=== PATIENT | female | born 1940 | race Caucasian/White ===

== ENCOUNTER 2019-02-05 08:02 | Inpatient (IN) | payer MEDICARE, SELFPAY | END 2019-02-06 14:35 | disposition home health service (06) | DRG 483 | LOC: MEDSURG 02-06 09:37 | PROVIDERS: Admitting Provider Orthopaedic Surgery; Family Provider Nurse Practitioner Family; PCP Nurse Practitioner Family; Referring Provider Nurse Practitioner Family; Visit Provider Orthopaedic Surgery | DX: M19.011 Primary osteoarthritis, right shoulder (principal); M75.121 Complete rotator cuff tear or rupture of right shoulder, not specified as traumatic; R33.9 Retention of urine, unspecified; Z79.82 Long term (current) use of aspirin; I11.0 Hypertensive heart disease with heart failure; I50.9 Heart failure, unspecified; Z87.891 Personal history of nicotine dependence ==

== ENCOUNTER → 2019-03-09 13:13 | Outpatient (BNVA) | payer MEDICARE, SELFPAY | PROVIDERS: Family Provider Nurse Practitioner Family; PCP Nurse Practitioner Family; Visit Provider Nurse Practitioner Family | DX: I10 Essential (primary) hypertension (principal); Z76.0 Encounter for issue of repeat prescription | CPT/HCPCS: 80053; 80061; 85025 ==

== ENCOUNTER → 2019-04-02 15:53 | Outpatient (BNVA) | payer MEDICARE, SELFPAY | PROVIDERS: Visit Provider Orthopaedic Surgery | DX: M25.511 Pain in right shoulder (principal); Z96.611 Presence of right artificial shoulder joint | CPT/HCPCS: 73030 ==

== ENCOUNTER 2019-05-16 08:28 | Outpatient (CLI) | payer MEDICARE, SELFPAY ==
--- NOTE | 2019-05-16 08:45 | USCV_ITS ---
Kenya Beckford Age: 79 Gender: F : 1940 Exam Date: 05/16/2019 08:53 Ordering Phys: Devan Taylor MD (Andy) ([email or web address]) Technologist: Shilpi Ba [place] [facility] [place]: ARTERIOSCLEROSIS OF CAROTID ARTERY Risk Factors: Previous Vascular Surgery: L CEA Right Brachial BP: / Left Brachial BP: / Right Left Velocity (cm/s) Spectral Plaque Velocity (cm/s) Spectral Plaque Syst/Diast Broadening Syst/Diast Broadening 78.60/ 12.00 Prox CCA 70.70 / 10.90 55.90/ 16.30 Mid CCA 69.00 / 15.80 55.90/ 13.20 Distal CCA 69.10 / 18.60 83.70/ 27.30 Prox ICA 73.50 / 22.20 95.70/ 26.50 Mid ICA 92.30 / 29.90 80.40/ 21.90 Distal ICA 72.60 / 25.60 87.80 ECA 144.60 1.71 ICA/CCA 1.34 Antegrade Vertebral Antegrade 51.30/ 10.50 cm/s 58.10/ 16.20 cm/s Tri Subclavian Bi 103.5 121.3 0 0 FINDINGS Comparison:. 11/02/18. Diffuse bilateral scattered calcified plaque and intimal thickening throughout the common carotid arteries and extending through the bifurcation. No significant elevation of systolic or diastolic velocities. Bilateral antegrade vertebral arteries. CONCLUSIONS Bilateral ICA stenosis less than 50%. Mild diffuse atherosclerosis with no change since 11/02/18. Dr. Lyubov Spring DO (Electronically Signed) Final Date: 16 May 2019 10:18 S
== END 2019-05-16 08:29 | disposition home or self-care (01) ==
PROVIDERS: Visit Provider Thoracic Surgery (Cardiothoracic Vascular Surgery)
DX: I65.23 Occlusion and stenosis of bilateral carotid arteries (principal)
CPT/HCPCS: 93880

== ENCOUNTER → 2019-10-01 16:35 | Outpatient (BNVA) | payer MEDICARE, SELFPAY | PROVIDERS: PCP Nurse Practitioner Family; Visit Provider Nurse Practitioner Family | DX: I12.9 Hypertensive chronic kidney disease with stage 1 through stage 4 chronic kidney disease, or unspecified chronic kidney disease (principal); N18.9 Chronic kidney disease, unspecified; E87.1 Hypo-osmolality and hyponatremia; Z68.24 Body mass index [BMI] 24.0-24.9, adult; F17.211 Nicotine dependence, cigarettes, in remission | CPT/HCPCS: 80053; 80061; 84443; 85025 ==

== ENCOUNTER → 2020-04-21 11:53 | Outpatient (BNVA) | payer MEDICARE, SELFPAY | PROVIDERS: PCP Nurse Practitioner Family; Visit Provider Nurse Practitioner Family | DX: I10 Essential (primary) hypertension (principal); N18.9 Chronic kidney disease, unspecified; Z68.24 Body mass index [BMI] 24.0-24.9, adult; F17.211 Nicotine dependence, cigarettes, in remission | CPT/HCPCS: 80053; 80061; 84443; 85025 ==

== ENCOUNTER → 2020-07-09 11:02 | Outpatient (BNVA) | payer MEDICARE, SELFPAY | PROVIDERS: PCP Nurse Practitioner Family; Visit Provider Nurse Practitioner Family | DX: M25.511 Pain in right shoulder (principal); Z96.611 Presence of right artificial shoulder joint | CPT/HCPCS: 73030 ==

== ENCOUNTER → 2020-10-15 10:14 | Outpatient (BNVA) | payer MEDICARE, SELFPAY | PROVIDERS: PCP Family Medicine; Visit Provider Family Medicine | DX: E78.5 Hyperlipidemia, unspecified (principal); I10 Essential (primary) hypertension | CPT/HCPCS: 80053; 80061; 84443; 85025 ==

== ENCOUNTER → 2021-04-23 16:06 | Outpatient (BNVA) | payer MEDICARE, SELFPAY | PROVIDERS: PCP Family Medicine; Visit Provider Family Medicine | DX: M25.512 Pain in left shoulder (principal); E78.5 Hyperlipidemia, unspecified; I10 Essential (primary) hypertension | CPT/HCPCS: 73030; 80053; 80061; 84443; 85025 ==

== ENCOUNTER 2021-05-03 20:56 | Inpatient (IN) | payer MEDICARE, SELFPAY ==
[2021-05-03 21:02] VITALS: BP 176/112; PULSE 75; RESP 16; TEMP 36.9; O2SAT 96; BMI 23.3
--- NOTE | 2021-05-03 21:09 | XR_ITS ---
WS: [id number] Exam: XR hip LT 2-3V wo/w pel* [id number] Date/Time of Exam: 05/03/2021 9:09 PM There is an impacted subcapital fracture of the left hip without significant displacement or angulati on. Moderate DJD of the joint compartment. Osteopenia. XR/XR hip LT 2-3V wo/w pel* [id number] IMPRESSION: 1. Impacted subcapital fracture of the left hip without significant angulation or displacement. 2. Moderate degenerative change.
--- NOTE | 2021-05-03 21:09 | XR_ITS ---
WS: [email or web address] Exam: XR chest 1V portable [id number] Date/Time of Exam: 05/03/2021 9:09 PM Reason For Exam: fall Comparison 12/21/2017. The lungs are hyperinflated and clear. No pleural effusions. Heart size is normal. The mediastinum is normal in contour. Signs of median sternotomy. Reverse right shoulder prosthesis in place. Regional bony structures are intact. XR/XR chest 1V portable [id number] IMPRESSION: 1. Pulmonary hyperinflation which may indicate COPD. No acute cardiopulmonary p rocess noted.
--- NOTE | 2021-05-03 21:21 | W.ED.FALL ---
HPI - Fall General: Chief Complaint: Fall Stated Complaint: FALL Time Seen by Provider: 05/03/21 21:00 History of Present Illness: 81-year-old female with mechanical fall at home, injuring her left hip. She was able to crawl to her in table, and stand up, but could not walk at home. This was around noon today. Pain increasingly got worse with any sort of movement. She presents by EMS. MD complaint: fall Onset (ago): hour(s) Fall from: standing Fall witnessed: no Place fall occurred: home Loss of consciousness: None Prolonged down time: no Symptoms prior to fall: none Context: tripped/slipped Location of injury - extremities: Left: thigh Quality: sharp, stabbing and aching Associated symptoms-after fall: Reports difficulty walking; Denies abdominal pain, chest pain, confusion, headache(s), neck pain, short of breath, vertigo or weakness Review of Systems Const: Denies: fever(s) Eyes: Denies: change in vision ENMT: Denies: throat pain Card: Denies: chest pain Resp: Denies: dyspnea, productive cough or non-productive cough GI: Denies: abdominal pain Musc: Denies: neck pain Neuro: Reports: difficulty walking; Denies: headache(s), vertigo or confusion PFSH ED PFSH: Medical History Aortic stenosis Arrhythmia Arteriosclerosis of left carotid artery Cardiomyopathy CKD (chronic kidney disease) COPD (chronic obstructive pulmonary disease) Dyslipidemia HTN (hypertension) Left ventricular dysfunction Surgical History Aortic valve replaced H/O carotid endarterectomy H/O: hysterectomy History of back surgery Hx of cholecystectomy S/p reverse total shoulder arthroplasty S/P shoulder surgery Family History Denies family history of Diabetes Clotting disorder Dementia Hyperlipidemia Psychiatric illness Chronic kidney disease (CKD) Suicide Anesthesia complication Bleeding disorder Family history of premature coronary artery disease Lung disease Cancer Hypertension Social History Smoking and tobacco status: current every day smoker Alcohol intake: never Lives independently: No Household members: family Marital status: service: No Current occupational status: retired History of recent travel: No Current gender identity: Female Physical Exam Const: GENERAL APPEARANCE: cooperative and frail appearing ORIENTATION/CONSCIOUSNESS: Yes awake, Yes oriented to person, Yes oriented to place and Yes oriented to time HENMT: COMMON NORMALS: normocephalic, atraumatic and external ears normal HEAD & SCALP: normocephalic and atraumatic FACE & SINUS: normal facial exam EXTERNAL EAR: Yes external ears normal Eye: COMMON NORMALS: Equal, round and reactive pupils present and EOMs intact bilaterally PUPIL: Yes Equal, round and reactive pupils present Neck/C-Spine: CERVICAL SPINE: No Cervical spine tenderness Chest: COMMONS NORMALS: normal inspection of the chest and normal palpation of entire chest wall Resp: COMMON NORMALS: normal respiratory effort, No use of accessory muscles and clear to auscultation bilaterally AUSCULTATION: clear to auscultation bilaterally Cardio: COMMON NORMALS: regular rate, regular rhythm and Peripheral pulses 2+ throughout RATE: regular rate RHYTHM: regular rhythm PERIPHERAL PULSES: Peripheral pulses 2+ throughout GI: COMMON NORMALS: Normal to inspection, nondistended, normoactive bowel sounds present, Soft to palpation and non-tender PALPATION: Yes Soft to palpation Extremity: NARRATIVE EXTREMITY EXAM: Exam the left lower extremity reveals tenderness over the anterior left hip and lateral hip. There is pain with any passive range of motion to the left groin. There is shortening of the left lower extremity present. Pulses and sensation are intact Neuro: ESSENCE COMA SCALE: document GCS findings [place] coma scale eye opening: Spontaneous [place] coma scale verbal response: Orientated Essence coma scale motor response: Obey commands [place] coma scale total score: 15 SENSORIUM/ORIENTATION: Yes oriented to person, Yes oriented to place and Yes oriented to time Psych: COMMON NORMALS: mental status grossly normal Course Vital Signs: Vital signs: Vital Signs Temperature 98.4 F 05/03/21 21:26 Pulse Rate 67 05/03/21 21:26 Respiratory Rate 16 05/03/21 21:26 Blood Pressure 178/89 05/03/21 21:26 Pulse Oximetry 94 05/03/21 21:26 MDM - Fall Medical Decision Making 81-year-old female who sustained a left subcapital femoral neck fracture. Orthopedics has been consulted from the ER. Hospitalist will see the patient as well. Lab Data : 05/03/21 21:20 05/03/21 21:20 Laboratory Results WBC 12.0 10^3/uL (4.0-10.0) H 05/03/21 21:20 RBC 4.02 10^6/uL (4.1-5.3) L 05/03/21 21:20 Hgb 12.2 g/dL (11.5-15.3) 05/03/21 21:20 Hct 35.6 % (37.0-47.0) L 05/03/21 21:20 MCV 88.6 fl (81-99) 05/03/21 21:20 MCH 30.3 pg (28.0-34.0) 05/03/21 21: MCHC 34.3 g/dL (30.0-36.0) 05/03/21 21: RDW 13.2 % (12.1-15.1) 05/03/21 21:20 Plt Count 238 10^3/cmm (130-400) 05/03/21 21:20 MPV 10.1 fL (7.4-10.4) 05/03/21 21:20 Neut % (Auto) 85.7 % 05/03/21 21:20 Lymph % (Auto) 7.9 % 05/03/21 21:20 [place] % (Auto) 5.3 % 05/03/21 21:20 Eos % (Auto) 0.2 % 05/03/21 21:20 Baso % (Auto) 0.3 % 05/03/21 21:20 Neut # (Auto) 10.26 10^3/uL (1.8-7.7) H 05/03/21 21:20 Lymph # (Auto) 0.9 10^3/uL (0.8-4.8) 05/03/21 21:20 [place] # (Auto) 0.6 10^3/uL (0.2-0.9) 05/03/21 21:20 Eos # (Auto) 0.0 10^3/uL (0.0-0.8) 05/03/21 21:20 Baso # (Auto) 0.0 10^3/uL (0.0-0.1) 05/03/21 21:20 Nucleated RBC % (auto) 0 % 05/03/21 21:20 Nucleated RBCs # 0.0 /100WBC 05/03/21 21:20 Discharge Plan Discharge Patient Disposition: Admitted As Inpatient Clinical Impression: Closed fracture of left hip Condition: Stable Prescriptions: No Action aspirin 81 mg tablet,delayed release (DR/EC) 81 mg PO ONCE 0RF Multiple Vitamin, Womens Tablet 1 tab PO DAILY 0RF celecoxib [Celebrex] 200 mg capsule 200 mg PO BID Qty: 60 1RF lisinopril-hydrochlorothiazide 20-25 mg tablet See Rx Instructions .ROUTE .COMPLEX Qty: 30 0RF Dose Instruction: TAKE ONE TABLET BY MOUTH DAILY Rx Instructions: TAKE ONE TABLET BY MOUTH DAILY metoprolol succinate 25 mg tablet extended release 24 hr See Rx Instructions .ROUTE .COMPLEX Qty: 30 0RF Dose Instruction: TAKE ONE TABLET BY MOUTH DAILY Rx Instructions: TAKE ONE TABLET BY MOUTH DAILY Referrals: Stephany Rowan MD [Primary Care Provider] - Coding Level of Care Code ED Lead Ingot Molder for David Malloy
[2021-05-03 21:26] VITALS: BP 178/89; PULSE 67; RESP 16; TEMP 36.9; O2SAT 94
[2021-05-03 21:27] LABS: Basophils % 0.3 %; Eosinophils % 0.2 %; Hematocrit 35.6 % (37.0-47.0); Hemoglobin 12.2 g/dL (11.5-15.3); Lymphocytes # 0.9 10^3/uL (0.8-4.8); Lymphocytes % 7.9 %; Mean Corpuscular HGB Conc 34.3 g/dL (30.0-36.0); Mean Corpuscular Hemoglobin 30.3 pg (28.0-34.0); Mean Corpuscular Volume 88.6 fl (81-99); Mean Platelet Volume 10.1 fL (7.4-10.4); Monocytes # 0.6 10^3/uL (0.2-0.9); Monocytes % 5.3 %; Neutrophils # 10.26 10^3/uL (1.8-7.7); Neutrophils % 85.7 %; Nucleated Red Blood Cells % 0 %; Platelet Count 238 10^3/cmm (130-400); Red Blood Count 4.02 10^6/uL (4.1-5.3); Red Cell Distribution Width 13.2 % (12.1-15.1)
[2021-05-03 21:43] LABS: Alanine Aminotransferase 17 U/L (0-33); Albumin Level 4.4 g/dL (3.5-5.2); Alkaline Phosphatase 81 IU/L (35-105); Blood Urea Nitrogen 44 mg/dL (8-23); Calcium 11.1 mg/dL (8.5-10.5); Carbon Dioxide 21 mmol/L (22-29); Chloride 98 mmol/L (98-107); Globulin 3.2 g/dL (1.3-4.6); Glucose 132 mg/dL (65-115); Osmolality Calculated 281 mOsm/kg (285-295); Sodium 129 mmol/L (136-145); Total Bilirubin 0.4 mg/dL (0.15-1.2); Total Protein 7.6 g/dL (6.6-8.7)
[2021-05-03 21:44] LABS: Anion Gap 14.8 (5-19); Aspartate Amino Transferase 29 U/L (0-32); Potassium 4.8 mmol/L (3.5-5.1)
[2021-05-03 21:58] LABS: Add Urine Microscopic? YES; Bilirubin Urine Neg (Negative); Blood Urine Neg (Negative); Glucose Urine UA Norm (Normal); Ketones Urine Negative (Negative); Leukocyte Esterase Urine Trace (Negative); Nitrate Urine Positive (Negative); Protein Urine Neg (Negative); Urine Appearance Clear (CLEAR); Urine Color Yellow (Yellow); Urobilinogen Urine Norm (Negative); pH Urine 5 (5-7)
[2021-05-03 21:59] LABS: Add Urine Culture? Yes; Bacteria Urine 4+ /hpf; Hyaline Casts Urine 0-4 /lpf; RBC Urine 0-4 /hpf (0-2); Squamous Epithelial Cell Urine 0-4 /hpf (0-5); WBC Urine >100 /hpf (0-5)
[2021-05-04] VITALS (28 sets, daily range): BP systolic 98–172; BP diastolic 43–92; PULSE 53–86; RESP 15–18; TEMP 36.2–36.8; O2SAT 90–100; BMI 23.4
--- NOTE | 2021-05-04 00:26 | PM.HP ---
Providers/Chief Complaint Admitting Physician: Navneet Spears MD Primary Care Provider: Stephany Rowan MD Chief Complaint: FALL History of Present Illness Kenya Beckford is a 81 year old female with a past medical history of COPD, history of aortic valve replacement, history of carotid endarterectomy, history of multiple falls, history of right shoulder surgery resultant from a fall, hypertension, dyslipidemia, CKD, who presents [facility] from a fall. Patient tells me that today, that she had a fall, she tells me both her knees just gave out, she was on the floor for about an hour before the EMS came. No significant head trauma, no loss of consciousness, no preceding chest pain, palpitations stroke symptoms seizure symptoms. She was not able to bear weight when she was gone up on her feet, no history of cardiac stenting, is a smoker no history of COPD and history of stroke, is not on any blood thinner, no diabetes, Review of Systems Const: Denies: fever(s) Eyes: Denies: change in vision ENMT: Denies: nasal congestion Resp: Denies: dyspnea or wheezing GI: Denies: abdominal pain, nausea or vomiting : Denies: flank pain Musc: Denies: neck pain or back pain Skin/Breast: Denies: rash Neuro: Denies: headache(s) or dizziness Medications/Allergies Home Medications Medication Instructions Recorded Confirmed Last Taken Type aspirin 81 mg tablet,delayed 81 mg PO ONCE 02/19/19 04/23/21 Unknown History release dypxpnqpjnwp-Tb-tzlp-minerals 1 tab PO DAILY tab 10/01/19 04/23/21 Unknown History (Multiple Vitamin, Womens) lisinopril 20 See Rx Instructions .ROUTE 04/20/21 04/23/21 Unknown Rx mg-hydrochlorothiazide 25 mg tablet .COMPLEX #30 tab metoprolol succinate 25 mg See Rx Instructions .ROUTE 04/20/21 04/23/21 Unknown Rx tablet,extended release 24 hr .COMPLEX #30 tab celecoxib 200 mg capsule (Celebrex) 200 mg PO BID #60 cap 04/23/21 04/23/21 Unknown Rx Allergies Allergy/AdvReac Type Severity Reaction Status Date / Time all antibiotics Allergy rash Uncoded 04/23/21 15:36 all pain medications Allergy rash Uncoded 04/23/21 15:36 PFSH Acute PFSH: Medical History Aortic stenosis Arrhythmia Arteriosclerosis of left carotid artery Cardiomyopathy CKD (chronic kidney disease) COPD (chronic obstructive pulmonary disease) Dyslipidemia HTN (hypertension) Left ventricular dysfunction Surgical History Aortic valve replaced H/O carotid endarterectomy H/O: hysterectomy History of back surgery Hx of cholecystectomy S/p reverse total shoulder arthroplasty S/P shoulder surgery Family History Denies family history of Diabetes Clotting disorder Dementia Hyperlipidemia Psychiatric illness Chronic kidney disease (CKD) Suicide Anesthesia complication Bleeding disorder Family history of premature coronary artery disease Lung disease Cancer Hypertension Social History Smoking and tobacco status: current every day smoker Alcohol intake: never Lives independently: No Household members: family Marital status: service: No Current occupational status: retired History of recent travel: No Current gender identity: Female Vitals/I&O/Wt Last Vital Signs Temp 98.2 F 05/04/21 00:08 Pulse 72 05/04/21 00:08 Resp 16 05/04/21 00:08 BP 172/92 05/04/21 00:08 Pulse Ox 94 05/04/21 00:08 Weight last 48 hrs Weight 61.689 kg Physical Exam Const: COMMON NORMALS: no acute distress and patient oriented x3 HENMT: COMMON NORMALS: normocephalic HEAD & SCALP: normocephalic Neck/C-Spine: COMMON NORMALS: no JVD Resp: COMMON NORMALS: normal respiratory effort, No retractions, No use of accessory muscles and clear to auscultation bilaterally AUSCULTATION: clear to auscultation bilaterally Cardio: COMMON NORMALS: no JVD, regular rate, regular rhythm, S1 normal heart sound present and S2 normal heart sound present RATE: regular rate RHYTHM: regular rhythm HEART SOUNDS: S1 normal heart sound present, S2 normal heart sound present and Murmur heart sound present GI: COMMON NORMALS: Normal to inspection, nondistended, normoactive bowel sounds present, Soft to palpation, non-tender, No hepatosplenomegaly present, no masses and no bruits PALPATION: Yes Soft to palpation and Yes No hepatosplenomegaly present Extremity: COMMON NORMALS: capillary refill normal, no clubbing, cyanosis or edema, no calf tenderness and no pedal edema Neuro: COMMON NORMALS: patient oriented x3 Psych: COMMON NORMALS: mental status grossly normal Urinary Catheter Management: Larose: Cath Placed During This Visit: yes Urinary Catheter Date of Insertion: 05/03/21 Urinary Catheter Time of Insertion: 21:40 Data : 05/03/21 21:20 05/03/21 21:20 A&P Assessment and plan (1) Closed fracture of left hip: Status: Acute Qualifiers: Encounter type: initial encounter Qualified Code(s): S72.002A - Fracture of unspecified part of neck of left femur, initial encounter for closed fracture (2) UTI (urinary tract infection): Status: Acute Plan Left hip fracture -Pain control morphine, Zofran for nausea -N.p.o. -SCDs for DVT prophylaxis, anticoagulation currently on hold for possible surgical intervention in the morning Hyponatremia, possibly secondary to lisinopril hydrochlorothiazide, dehydration, hold blood pressure medications, IV fluids UTI, Rocephin DEVIN on CKD, IV fluids COPD, not in exacerbation Hypertension, hold blood pressure medications History of aortic valve replacement, not on anticoagulation except aspirin Full code Attestations Medical Necessity Statement*: Patient requires hospitalization for hip fracture, UTI, CKD, inpatient, greater than 2 minutes Coding Level of Care Code Acute Tour Production Supervisor for David Malloy Diagnoses Closed fracture of left hip S72.002A Encounter type: initial encounter UTI (urinary tract infection) N39.0
[2021-05-04] MEDS: fentaNYL 50 mcg/mL INJ 2mL IVP (00:27)
[2021-05-04] MEDS: ondansetron 2 mg/ML SDV 2 mL 4 MG IVP (00:27)
[2021-05-04] MEDS: dextrose 5%-sod chloride 0.9% 1,000 ML 75 ML IV ×2 (01:14→12:41)
[2021-05-04] MEDS: pantoprazole 40 mg SDV IVP ×2 (01:14→12:42)
[2021-05-04] MEDS: cefTRIAXone 1,000 MG in sodium chloride 0.9% (plus) 50 ML 100 MG IV (01:14)
[2021-05-04] MEDS: morphine 4 mg/mL SDV 1 mL 2 MG IVP ×2 (01:42→13:06)
[2021-05-04 03:55] LABS: NT Pro B Type Natriuretic Pept 1178 pg/mL (0-450)
--- NOTE | 2021-05-04 06:11 | PM.CONSULT ---
Providers/Reason For Consult Consulting Physician/Specialty*: Orthopedics Reason for Consult*: Left hip pain Attending Physician: Navneet Spears MD Primary Care Provider: Stephany Rowan MD History of Present Illness History of Present Illness Kenya Beckford is a 81 year old female who fell from a standing position at home sustaining injury to her Left hip. She felt immediate pain with inability to stand or move without severe pain been constant sharp stabbing in nature. She presented to [facility] emergency room where x-rays confirmed a left hip fracture. She was admitted for more definitive management orthopedics was consulted. She was evaluated on room 277 with continued left hip pain. She denied any neck or back pain. Denied any loss of consciousness in the fall. Ranks the pain is 7 out of 10 on the pain scale. Movement makes it much worse rest gives her some temporary relief. An extensive review of the patient's past medical history, surgical history, allergies, medications, family history, social history, and review of systems was completed Review of Systems Const: Denies: fever(s) Eyes: Denies: change in vision ENMT: Denies: nasal congestion Resp: Denies: dyspnea or wheezing GI: Denies: abdominal pain, nausea or vomiting : Denies: flank pain Musc: Denies: neck pain or back pain Skin/Breast: Denies: rash Neuro: Denies: headache(s) or dizziness Medications/Allergies Home Medications Medication Instructions Recorded Confirmed Last Taken Type aspirin 81 mg tablet,delayed 81 mg PO DAILY 02/19/19 05/04/21 Unknown History release tvegjevkmyec-Nr-hbec-minerals 1 tab PO DAILY tab 10/01/19 05/04/21 Unknown History (Multiple Vitamin, Womens) lisinopril 20 See Rx Instructions .ROUTE 04/20/21 05/04/21 Unknown Rx mg-hydrochlorothiazide 25 mg tablet .COMPLEX #30 tab metoprolol succinate 25 mg See Rx Instructions .ROUTE 04/20/21 05/04/21 Unknown Rx tablet,extended release 24 hr .COMPLEX #30 tab celecoxib 200 mg capsule (Celebrex) 200 mg PO BID #60 cap 04/23/21 05/04/21 Unknown Rx Allergies Allergy/AdvReac Type Severity Reaction Status Date / Time Anything in cillin family Allergy ALGY-Rash Uncoded 05/04/21 01:36 Aspirin 325mg Allergy ALGY-Rash Uncoded 05/04/21 01:37 Current Medications Generic Name Dose Route Start Last Admin Trade Name Roshanq PRN Reason Stop Dose Admin Ceftriaxone Sodium 1,000 mg/ 50 mls @ 100 mls/hr 05/04/21 00:30 05/04/21 01:14 Sodium Chloride IV 100 mls/hr Q24H MARK Administration Protocol Dextrose/Sodium Chloride 1,000 mls @ 75 mls/hr 05/04/21 00:30 05/04/21 01:14 Dextrose 5%-Sod Chloride 0.9% IV 75 mls/hr .[id number] MARK Administration Morphine Sulfate 2 mg 05/04/21 00:28 05/04/21 01:42 Morphine 4 Mg/Ml Sdv 1 Ml IVP 2 mg Q4H PRN Administration SEVERE PAIN Pantoprazole Sodium 40 mg 05/04/21 00:30 05/04/21 01:14 Pantoprazole 40 Mg Sdv IVP 40 mg Q12H MARK Administration PFSH Acute PFSH: Medical History Aortic stenosis Arrhythmia Arteriosclerosis of left carotid artery Cardiomyopathy CKD (chronic kidney disease) COPD (chronic obstructive pulmonary disease) Dyslipidemia HTN (hypertension) Left ventricular dysfunction Surgical History Aortic valve replaced H/O carotid endarterectomy H/O: hysterectomy History of back surgery Hx of cholecystectomy S/p reverse total shoulder arthroplasty S/P shoulder surgery Family History Denies family history of Diabetes Clotting disorder Dementia Hyperlipidemia Psychiatric illness Chronic kidney disease (CKD) Suicide Anesthesia complication Bleeding disorder Family history of premature coronary artery disease Lung disease Cancer Hypertension Social History Smoking and tobacco status: current every day smoker Alcohol intake: never Lives independently: No Household members: family Marital status: service: No Current occupational status: retired History of recent travel: No Current gender identity: Female Vitals/I&O/Wt Last Vital Signs Temp 97.8 F 05/04/21 04:00 Pulse 60 05/04/21 04:00 Resp 18 05/04/21 04:00 BP 98/60 03/28/22 04:00 Pulse Ox 96 05/04/21 04:00 05/03/21 05/03/21 05/04/21 14:59 22:59 06:59 Output Total 375 / 375 Balance -375 / -375 Weight last 48 hrs Weight 136 lb 8 oz Weight 136 lb Physical Exam Narrative: She is alert and orient x3 she has good general appearance normal normal affect. She is tender with palpation over the left hip she has positive logroll on the left negative on the right. She has normal station light touch down both lower extremities skin is clear warm femoral good cap refill calves are supple no medial thigh tenderness. Wiggles her toes. Dorsalis pedis posterior pulses are palpable. No palpable pain in the lumbar region she has well-healed incision from previous lumbar surgery. No palpable pain in the thoracic or cervical spine moves both upper extremities are warm to touch hands warm good cap refill. HENMT: COMMON NORMALS: normocephalic and atraumatic HEAD & SCALP: normocephalic and atraumatic Resp: COMMON NORMALS: normal respiratory effort Cardio: COMMON NORMALS: regular rate and regular rhythm RATE: regular rate RHYTHM: regular rhythm GI: COMMON NORMALS: Soft to palpation and non-tender PALPATION: Yes Soft to palpation : COMMON NORMALS: Yes no CVA tenderness BLADDER/KIDNEY EXAM: Yes no CVA tenderness Back/Pelvis: COMMON NORMALS: no CVA tenderness Psych: COMMON NORMALS: mental status grossly normal and cooperative Urinary Catheter Management: Larose: Cath Placed During This Visit: yes Urinary Catheter Date of Insertion: 05/03/21 Urinary Catheter Time of Insertion: 21:40 Data : 05/03/21 21:20 05/03/21 21:20 A&P Assessment and plan (1) Left displaced femoral neck fracture: Discussed her injury to the left hip which will need open reduction internal fixation with left hip hemiarthroplasty. Discussed the risks and benefits of the procedure which include but not limited to bleeding, infection, nerve damage, reaction to anesthesia. She understands and wishes to proceed. Discussed with Dr. Grady and he agrees with above-stated plan. Status: Acute (2) Hyponatremia: Status: Acute (3) UTI (urinary tract infection): Status: Acute (4) COPD (chronic obstructive pulmonary disease): Status: Acute Coding Level of Care Code Acute Dock Associate for [facility] Diagnoses Left displaced femoral neck fracture S72.002A Hyponatremia E87.1 UTI (urinary tract infection) N39.0 COPD (chronic obstructive pulmonary disease) J44.9
--- NOTE | 2021-05-04 10:30 | PC.CHAP ---
Pastoral Care Encounter/Spiritual Assessment Type of Contact [] Declined leaflet distributor visit [] Patient/Family/Request visit [] Outpatient visit [] Follow-up visit [] Physician referral [] Code/Alert [x] Routine visit [] Staff referral [] Actively dying [] Patient sleeping [] Family support [] [] Out of room [] Palliative care [] [] Receiving care in room [] Pre-surgical visit [] Trauma [] Long length of stay [] ICU visit [] Other: Relational/Emotional Strength x[] Patient feels connected with others/family/visitors/staff [] Distress [] Loneliness/isolation [] Abandonment Spirituality of Patient x] Person of Tania [x] Attends Hindu of their Tania [x] Believes in Prayer [] Reads Bible or Orthodoxy materials [] There are Spiritual issues to be addressed Microphone Operator Interventions [x] Prayer [x] Active listening [x] Non-anxious presence [] Spiritual/emotional support [] Crisis/trauma care [] Spiritual counseling [] Bereavement support [] Provided bereavement packet [] Provided Bible/devotional materials [] Provided toy/stuffed animal, coloring book to patient or family member [] Provided Communion [] Anointing/[place] [] Salvation [x] Completed spiritual assessment [] Other: Impact on Illness or Injury [] Angry [] Fearful [] Anxious [] Often cries [] Exhaustion [] Unable to work [] Unable to attend uatsdin [] Unable to walk/stand [] Unable to read [] Unable to drive [] Unable to eat/drink [] Unable to sleep [] Unable to be with family [] Patient intubated [] Other: Summary Time spent with patient 10 min
--- NOTE | 2021-05-04 11:34 | P.PN_ITS ---
Subjective Subjective: Patient was seen this morning, she is awaiting surgical intervention by Dr. Butler, she has no complaints, pain is well controlled, she is wheezing on exam, reports a history of COPD, has history of smoking Vitals/I&O/Wt Last Vital Signs Temp 97.2 F L 05/04/21 07:59 Pulse 62 05/04/21 08:52 Resp 18 05/04/21 08:52 BP 98/62 05/04/21 07:59 Pulse Ox 95 05/04/21 09:01 05/03/21 05/04/21 05/04/21 22:59 06:59 14:59 Intake Total 50 / 50 Output Total 375 / 375 Balance -375 / -375 50 / 50 Weight last 48 hrs Weight 61.915 kg Weight 61.689 kg Physical Exam Const: COMMON NORMALS: no acute distress and patient oriented x3 Resp: COMMON NORMALS: normal respiratory effort, No retractions and No use of accessory muscles AUSCULTATION: wheezes Cardio: COMMON NORMALS: regular rate, regular rhythm, S1 normal heart sound present and S2 normal heart sound present RATE: regular rate RHYTHM: regular rhythm HEART SOUNDS: S1 normal heart sound present and S2 normal heart sound present GI: COMMON NORMALS: Normal to inspection, nondistended, normoactive bowel sounds present, Soft to palpation, non-tender, No hepatosplenomegaly present and no masses PALPATION: Yes Soft to palpation and Yes No hepatosplenomegaly present Extremity: COMMON NORMALS: no pedal edema Neuro: COMMON NORMALS: patient oriented x3 Psych: COMMON NORMALS: mental status grossly normal Urinary Catheter Management: Larose: Cath Placed During This Visit: yes Reason for Continuing Indwelling Catheter: Perioperative Use in Selected Surgeries Urinary Catheter Date of Insertion: 05/03/21 Urinary Catheter Time of Insertion: 21:40 Data : 05/03/21 21:20 05/03/21 21:20 A&P Assessment and plan (1) COPD exacerbation: Status: Acute (2) Closed fracture of left hip: Status: Acute Qualifiers: Encounter type: initial encounter Qualified Code(s): S72.002A - Fracture of unspecified part of neck of left femur, initial encounter for closed fracture (3) UTI (urinary tract infection): Status: Acute Plan Left hip fracture -Pain control morphine, Zofran for nausea -N.p.o. -SCDs for DVT prophylaxis, anticoagulation currently on hold for possible surgical intervention in the morning Hyponatremia, possibly secondary to lisinopril hydrochlorothiazide, dehydration, hold blood pressure medications, IV fluids UTI, Rocephin COPD exacerbation: 1 dose of Solu-Medrol 125, started by 40 once daily tomorrow, DuoNeb treatments DEVIN on CKD, IV fluids COPD, not in exacerbation Hypertension, hold blood pressure medications History of aortic valve replacement, not on anticoagulation except aspirin Full code Disposition, will have PT OT work with her, decide if she needs to have home health care versus skilled nursing placement Attestations Medical Necessity Statement*: Patient requires hospitalization for COPD exacerbation, hip fracture, UTI, hyponatremia, inpatient, greater than 2 midnights Coding Level of Care Code Acute Manganese Heater for David Malloy Diagnoses COPD exacerbation J44.1 Closed fracture of left hip S72.002A Encounter type: initial encounter UTI (urinary tract infection) N39.0
--- NOTE | 2021-05-04 14:29 | ANES.PREANE2 ---
Pre-Anesthetic Assessment Height/Weight: Height 1.63 m Weight 61.915 kg Temp Pulse Resp BP Pulse Ox 97.5 F L 67 17 111/65 90 05/04/21 11:59 05/04/21 11:59 05/04/21 11:59 05/04/21 11:59 05/04/21 11:42 Preop Diagnosis: Displaced left femoral neck fracture Operation Date: 05/04/21 18:55 Proposed Procedures p Hemiarthroplasty Hip(Left) - Jamel Butler, DO Familial anesthetic complications: None Was Beta Ariana taken within 24 hours: Yes Was Clonidine taken within 24 hours: N/A Last intake: 05/03/21 Social Tobacco Exam alert, oriented x 3, clear to auscultation bilaterally and regular rate & rhythm Airway Submandibular: within normal limits Cervical ROM: within normal limits Mallampati: Class II Dentition: false History/ROS No significant complaints Pulmonary Chronic Obstructive Pulmonary Disease CV/HEM Arrythmia, Congestive Heart Failure, Hypertension, Murmur and Peripheral Vascular Disease Hx of s/p AVR PVD s/p carotid endaterectomy Elevated BNP EKG pending Chronic Renal Insufficiency Hepatic None reported GI None reported Metabolic None reported Musc/skel Osteoarthritis/DJD Neuropsych None reported No loss of consciousness Anesthetic Plan ASA status: 3 Anesthesia: Anesthesia Evaluation and General Other: We discussed risk and benefits of general vs spinal anesthesia including DVT risk, infection, paralysis/catastrophic nerve injury, back bruising/pain, PDPH, conversion to general in case of spinal, PONV, sore throat (sometimes severe), corneal abrasion, positioning and peripheral nerve injuries, life threatening allergic reaction, post operative ICU admission requiring prolonged intubation, stroke, heart attack, , and rare incidences of recall. Patient prefers general anesthesia Risk of > 500 ml blood loss (7ml/kg in children): No Medications/Allergies Home Medications Medication Instructions Recorded Confirmed Last Taken Type aspirin 81 mg tablet,delayed 81 mg PO DAILY 02/19/19 05/04/21 Unknown History release aiwjitushgdl-Gp-dunk-minerals 1 tab PO DAILY tab 10/01/19 05/04/21 Unknown History (Multiple Vitamin, Womens) lisinopril 20 See Rx Instructions .ROUTE 04/20/21 05/04/21 Unknown Rx mg-hydrochlorothiazide 25 mg tablet .COMPLEX #30 tab metoprolol succinate 25 mg See Rx Instructions .ROUTE 04/20/21 05/04/21 Unknown Rx tablet,extended release 24 hr .COMPLEX #30 tab celecoxib 200 mg capsule (Celebrex) 200 mg PO BID #60 cap 04/23/21 05/04/21 Unknown Rx Allergies Allergy/AdvReac Type Severity Reaction Status Date / Time Anything in cillin family Allergy ALGY-Rash Uncoded 05/04/21 01:36 Aspirin 325mg Allergy ALGY-Rash Uncoded 05/04/21 01:37 Current Medications Generic Name Dose Route Start Last Admin Trade Name Freq PRN Reason Stop Dose Admin Docusate Sodium 100 mg 05/04/21 09:00 05/04/21 07:55 Docusate Sodium 100 Mg Capsule PO Not Given BID MARK Ceftriaxone Sodium 1,000 mg/ 50 mls @ 100 mls/hr 05/04/21 00:30 05/04/21 07:55 Sodium Chloride IV Infused Q24H MARK Infusion Protocol Dextrose/Sodium Chloride 1,000 mls @ 75 mls/hr 05/04/21 00:30 05/04/21 12:41 Dextrose 5%-Sod Chloride 0.9% IV 75 mls/hr .[id number] MARK Administration Morphine Sulfate 2 mg 05/04/21 00:28 05/04/21 13:06 Morphine 4 Mg/Ml Sdv 1 Ml IVP 2 mg Q4H PRN Administration SEVERE PAIN Pantoprazole Sodium 40 mg 05/04/21 00:30 05/04/21 12:42 Pantoprazole 40 Mg Sdv IVP 40 mg Q12H MARK Administration PFSH Anesthesia Medical History Aortic stenosis Arrhythmia Arteriosclerosis of left carotid artery Cardiomyopathy CKD (chronic kidney disease) COPD (chronic obstructive pulmonary disease) Dyslipidemia HTN (hypertension) Left ventricular dysfunction Surgical History Aortic valve replaced H/O carotid endarterectomy H/O: hysterectomy History of back surgery Hx of cholecystectomy S/p reverse total shoulder arthroplasty S/P shoulder surgery Family History Denies family history of Diabetes Clotting disorder Dementia Hyperlipidemia Psychiatric illness Chronic kidney disease (CKD) Suicide Anesthesia complication Bleeding disorder Family history of premature coronary artery disease Lung disease Cancer Hypertension Social History Smoking and tobacco status: current every day smoker Alcohol intake: never Lives independently: No Household members: family Marital status: service: No Current occupational status: retired History of recent travel: No Current gender identity: Female Data Anesthesia : 05/03/21 21:20 05/03/21 21:20 Short CBC 05/03/21 Range/Units 21:20 WBC 12.0 H (4.0-10.0) 10^3/uL Hgb 12.2 (11.5-15.3) g/dL Hct 35.6 L (37.0-47.0) % MCV 88.6 (81-99) fl Plt Count 238 (130-400) 10^3/cmm Neut % (Auto) 85.7 % Neut # (Auto) 10.26 H (1.8-7.7) 10^3/uL BMP 05/03/21 21:20 Sodium 129 L Potassium 4.8 Chloride 98 Carbon Dioxide 21 L BUN 44 H Creatinine 1.5 H Glucose 132 H Calcium 11.1 H Cardiac Enzymes 05/04/21 Range/Units 03:12 NT-Pro-B Natriuret Pep 1178 H (0-450) pg/mL Liver Function 05/03/21 Range/Units 21:20 Total Bilirubin 0.4 (0.15-1.2) mg/dL AST 29 (0-32) U/L ALT 17 (0-33) U/L Alkaline Phosphatase 81 (35-105) IU/L Albumin 4.4 (3.5-5.2) g/dL Urine 05/03/21 Range/Units 21:40 Urine Color Yellow (Yellow) Urine Appearance Clear (CLEAR) Urine pH 5 (5-7) Ur Specific [place] 1.020 (1.005-1.030) Urine Protein Neg (Negative) Urine Glucose (UA) Norm (Normal) Urine Ketones Negative (Negative) Urine Nitrate Positive H (Negative) Urine Bilirubin Neg (Negative) Ur Leukocyte Esterase Trace H (Negative) Urine RBC 0-4 H (0-2) /hpf Urine WBC >100 H (0-5) /hpf Cardiac Studies: No Data to Display
--- NOTE | 2021-05-04 14:45 | ECG_ITS ---
[facility] Test Date: 2021-05-04 Pat Name: Kenya Beckford Department: Room: 277 Gender: Female Backrest Assembler: : 1940 Requested By: Connie Foy Order Number: [id number] Brittany MD: Ramon Le M.D. Measurements Intervals [place] Rate: 62 P: 20 OK: 205 QRS: -6 QRSD: 135 T: 40 QT: 423 QTc: 431 Interpretive Statements SINUS RHYTHM LEFT BUNDLE BRANCH BLOCK [120+ ms QRS DURATION, 80+ ms Q/S IN V1/V2, 85+ ms R IN I/aVL/V5/V6] Compared to ECG 01/26/2019 12:00:13 Sinus arrhythmia no longer present Electronically Signed On 05-04-2021 22:02:03 CDT by Ramon Le M.D. [email or web address]
[2021-05-04] MEDS: sodium chloride 0.9% 1,000 ML 30 ML IV (15:04)
--- NOTE | 2021-05-04 15:07 | PC.NURSE ---
Clindamycin dose confirmed with physician. Order received to use 900mg for surgery
[2021-05-04] MEDS: clindamycin 900 MG/50 ML PREMIX 100 MG IV (15:59)
--- NOTE | 2021-05-04 16:51 | PM.OP ---
Operative Report Date of procedure: May 04, 2021 Pre-op diagnosis: Preop Diagnosis Displaced left femoral neck fracture Post-op diagnosis: same Procedure done: left hip hemiarthroplasty Surgeon: Jamel Butler Scientific Artist: Moses Skaggs Scientific Artist: The talent acquisition assistant, Moses Skaggs, HECTOR was needed for his expertise with fracture care. He was important and necessary throughout the procedure to complete in a safe and timely manner. He assisted with patient positioning prepping and draping tissue retraction suctioning of the operative field protection of the critical structures and tissue closure Estimated blood loss (mL): 50 Procedure: Patient was brought to the operative suite after undergoing incision was positioned in the lateral cubitus position with the left side up. Patient was then prepped and draped normal sterile fashion. Skin tear is made over the lateral aspect of the hip. IT band was split modified Gonzalez approach was used abductors and capsule were taken anteriorly. Femoral neck made with a saw. Next tension was brought to preparing the femoral canal after the acetabular is cleaned out. caramel cutter machine was used in the greater trochanter. Followed by canal finder followed by broaches the first broach used to lateralize the canal and then 5 broaches were placed 0-5. Size 5 Eckley stem was inserted with a negative for neck length and appropriate size head. The hip was reduced and trialed in all positions. Once the hip was felt to be stable wounds were irrigated and closed in a layered fashion. Fiber is used to close the capsule and abductors. The IT was closed with 0 Vicryl skin was closed 2-0 Vicryl and юлия. Sterile dressings applied and patient is transferred to the PACU in stable condition.
--- NOTE | 2021-05-04 17:50 | ANE.PACU2 ---
Inpatient post-anesthesia follow up: Airway intact: Yes Vital signs: Temperature 97.5 F Pulse Rate 78 Respiratory Rate 17 Blood Pressure 131/61 Pulse Oximetry 100 Oxygen Delivery Me thod Nasal Cannula Oxygen Flow Rate 3 Fraction of Inspir ed Oxygen Hydration adequate: Yes Nausea and vomiting: No Pain level: 1 Mental status: Baseline
[2021-05-04] MEDS: ketorolac 30 mg/mL INJ 15 MG IVP (23:42)
[2021-05-05] VITALS (10 sets, daily range): BP systolic 100–149; BP diastolic 63–70; PULSE 46–123; RESP 16–19; TEMP 36.4–36.9; O2SAT 91–97
[2021-05-05] MEDS: clindamycin 600 MG/50 ML PREMIX 100 MG IV ×3 (00:24→15:17)
[2021-05-05] MEDS: pantoprazole 40 mg SDV IVP ×2 (00:54→11:42)
[2021-05-05] MEDS: cefTRIAXone 1,000 MG in sodium chloride 0.9% (plus) 50 ML 100 MG IV (01:15)
[2021-05-05] MEDS: enoxaparin 40 mg/0.4 mL Syringe SUBCUT (03:54)
[2021-05-05] MEDS: dextrose 5%-sod chloride 0.9% 1,000 ML 75 ML IV (05:06)
[2021-05-05] MEDS: ketorolac 30 mg/mL INJ 15 MG IVP ×4 (05:10→22:16)
[2021-05-05 05:38] LABS: Basophils % 0.1 %; Hemoglobin 9.2 g/dL (11.5-15.3); Lymphocytes # 0.9 10^3/uL (0.8-4.8); Lymphocytes % 9.2 %; Mean Corpuscular HGB Conc 32.9 g/dL (30.0-36.0); Mean Corpuscular Hemoglobin 31.2 pg (28.0-34.0); Mean Corpuscular Volume 94.9 fl (81-99); Mean Platelet Volume 10.4 fL (7.4-10.4); Monocytes # 0.9 10^3/uL (0.2-0.9); Monocytes % 8.5 %; Neutrophils # 8.13 10^3/uL (1.8-7.7); Neutrophils % 81.7 %; Nucleated Red Blood Cells % 0 %; Platelet Count 175 10^3/cmm (130-400); Red Blood Count 2.95 10^6/uL (4.1-5.3); Red Cell Distribution Width 13.6 % (12.1-15.1)
[2021-05-05 06:04] LABS: Anion Gap 13.9 (5-19); Blood Urea Nitrogen 33 mg/dL (8-23); Calcium 9.3 mg/dL (8.5-10.5); Carbon Dioxide 22 mmol/L (22-29); Chloride 102 mmol/L (98-107); Glucose 119 mg/dL (65-115); Magnesium 1.8 mg/dL (1.7-2.3); Osmolality Calculated 284 mOsm/kg (285-295); Potassium 4.9 mmol/L (3.5-5.1); Sodium 133 mmol/L (136-145); Thyroid Stimulating Hormone 0.33 uIU/mL (0.27-4.20)
--- NOTE | 2021-05-05 07:47 | P.PN_ITS ---
Subjective Subjective: POD 1 Patient resting comfortably. Has some mild left hip pain. Denies any chest pain, shortness of breath. Vitals/I&O/Wt Last Vital Signs Temp 98.3 F 05/05/21 07:29 Pulse 54 L 05/05/21 07:29 Resp 17 05/05/21 07:29 BP 100/70 05/05/21 07:29 Pulse Ox 95 05/05/21 07:29 05/04/21 05/05/21 05/05/21 22:59 06:59 14:59 Intake Total 1050 / 1958.75 1340 / 3298.75 Output Total 215 / 215 400 / 615 Balance 835 / 1743.75 940 / 2683.75 Weight last 48 hrs Weight 136 lb 8 oz Weight 136 lb Physical Exam Narrative: Patient is alert and orient x3 has good general appearance normal normal affect. Left hip incision is clean and dry. There is no signs of erythema or drainage no signs of infection. Good motor strength throughout both lower extremities. Fires in all motor groups. Skin is clear warm, feet are warm with good cap refill in all digits. Normal sensation to light touch. Calves are supple, no medial thigh tenderness, negative Homans' sign. No palpable edema peripherally. Urinary Catheter Management: Larose: Cath Placed During This Visit: yes Reason for Continuing Indwelling Catheter: Accurate Measurement of Urinary Output in Critically Ill Patients Urinary Catheter Date of Insertion: 05/03/21 Urinary Catheter Time of Insertion: 21:40 Data : 05/05/21 05:10 05/05/21 05:10 A&P Assessment and plan (1) Left displaced femoral neck fracture: Physical therapy to eval and treat weightbearing as tolerated left lower extremity. Continue incentive spirometry for pulmonary toilet. procurement services manager consult for placement. Status: Acute Attestations Medical Necessity Statement*: defer to medical team Coding Level of Care Code Acute Inspector Quality Assurance for [facility] Fwd Diagnoses Left displaced femoral neck fracture S72.002A
[2021-05-05] MEDS: docusate sodium 100 mg Capsule PO (07:55)
[2021-05-05] MEDS: predniSONE 20 mg Tablet 40 MG PO (07:55)
[2021-05-05 12:33] LABS: Hematocrit 29.6 % (37.0-47.0); Hemoglobin 9.7 g/dL (11.5-15.3)
--- NOTE | 2021-05-05 15:18 | P.PN_ITS ---
Subjective Subjective: Patient was seen this morning, she tells me that she does not want to go to a care home, she is adamant that she is going to go home, she has not had a bowel movement yet, no fevers overnight Vitals/I&O/Wt Last Vital Signs Temp 97.5 F L 05/05/21 11:29 Pulse 61 05/05/21 14:00 Resp 17 05/05/21 11:29 BP 122/64 05/05/21 11:29 Pulse Ox 96 05/05/21 11:29 05/05/21 05/05/21 05/05/21 06:59 14:59 22:59 Intake Total 1340 / 3298.75 1010 / 1010 Output Total 400 / 615 Balance 940 / 2683.75 1010 / 1010 Weight last 48 hrs Weight 61.915 kg Weight 61.689 kg Physical Exam Const: COMMON NORMALS: no acute distress and patient oriented x3 Resp: COMMON NORMALS: normal respiratory effort, No retractions, No use of accessory muscles and clear to auscultation bilaterally AUSCULTATION: clear to auscultation bilaterally Cardio: COMMON NORMALS: regular rate, regular rhythm, S1 normal heart sound present and S2 normal heart sound present RATE: regular rate RHYTHM: regular rhythm HEART SOUNDS: S1 normal heart sound present and S2 normal heart sound present GI: COMMON NORMALS: Normal to inspection, nondistended, normoactive bowel sounds present, Soft to palpation, non-tender and No hepatosplenomegaly present PALPATION: Yes Soft to palpation and Yes No hepatosplenomegaly present Extremity: COMMON NORMALS: no pedal edema Neuro: COMMON NORMALS: patient oriented x3 Psych: COMMON NORMALS: mental status grossly normal Urinary Catheter Management: Larose: Cath Placed During This Visit: yes Reason for Continuing Indwelling Catheter: Accurate Measurement of Urinary Output in Critically Ill Patients Urinary Catheter Date of Insertion: 05/03/21 Urinary Catheter Time of Insertion: 21:40 Data : 05/05/21 12:17 05/05/21 05:10 Micro: Microbiology 05/03/21 21:40 Urine Culture - Preliminary Urine Catheterized Gram Negative Rods A&P Assessment and plan (1) COPD exacerbation: Status: Acute (2) Closed fracture of left hip: Status: Acute Qualifiers: Encounter type: initial encounter Qualified Code(s): S72.002A - Fracture of unspecified part of neck of left femur, initial encounter for closed fracture (3) UTI (urinary tract infection): Status: Acute Plan Left hip fracture -Status post left hip hemiarthroplasty -Pain control morphine, Zofran for nausea -SCDs for DVT prophylaxis Lovenox Hyponatremia, resolving UTI, Rocephin COPD exacerbation: 1 dose of Solu-Medrol 125, started by 40 once daily tomorrow, DuoNeb treatments DEVIN on CKD, stop IV fluids COPD, not in exacerbation Hypertension, hold blood pressure medications History of aortic valve replacement, not on anticoagulation except aspirin Full code Disposition, will have PT OT work with her, decide if she needs to have home health care versus care home placement Attestations Medical Necessity Statement*: Patient requires hospitalization for hip fracture Coding Level of Care Code Acute Awning Maker And Installer for David Malloy Diagnoses COPD exacerbation J44.1 Closed fracture of left hip S72.002A Encounter type: initial encounter UTI (urinary tract infection) N39.0
[2021-05-06] VITALS (11 sets, daily range): BP systolic 118–146; BP diastolic 55–71; PULSE 52–70; RESP 16–19; TEMP 36.3–36.7; O2SAT 91–98
[2021-05-06] MEDS: pantoprazole 40 mg SDV IVP ×2 (00:20→11:03)
[2021-05-06] MEDS: cefTRIAXone 1,000 MG in sodium chloride 0.9% (plus) 50 ML 100 MG IV (00:21)
[2021-05-06] MEDS: enoxaparin 40 mg/0.4 mL Syringe SUBCUT (04:44)
[2021-05-06] MEDS: ketorolac 30 mg/mL INJ 15 MG IVP ×2 (04:44→11:03)
[2021-05-06 05:14] LABS: Basophils % 0.2 %; Eosinophils % 0.3 %; Hematocrit 25.1 % (37.0-47.0); Hemoglobin 8.2 g/dL (11.5-15.3); Lymphocytes % 19.7 %; Mean Corpuscular HGB Conc 32.7 g/dL (30.0-36.0); Mean Corpuscular Hemoglobin 30.6 pg (28.0-34.0); Mean Corpuscular Volume 93.7 fl (81-99); Neutrophils # 6.96 10^3/uL (1.8-7.7); Neutrophils % 69.5 %; Nucleated Red Blood Cells % 0 %; Platelet Count 157 10^3/cmm (130-400); Red Blood Count 2.68 10^6/uL (4.1-5.3); Red Cell Distribution Width 13.8 % (12.1-15.1)
[2021-05-06 05:33] LABS: Anion Gap 12.4 (5-19); Blood Urea Nitrogen 35 mg/dL (8-23); Calcium 9.2 mg/dL (8.5-10.5); Carbon Dioxide 21 mmol/L (22-29); Chloride 102 mmol/L (98-107); Glucose 109 mg/dL (65-115); Magnesium 1.8 mg/dL (1.7-2.3); Osmolality Calculated 281 mOsm/kg (285-295); Phosphorus 3.1 mg/dL (2.5-4.5); Potassium 4.4 mmol/L (3.5-5.1); Sodium 131 mmol/L (136-145)
--- NOTE | 2021-05-06 07:04 | PM.PN ---
Subjective Subjective: POPD 2 Patient resting comfortably. Denies any chest pain or shortness of breath. Vitals/I&O/Wt Last Vital Signs Temp 98.1 F 05/06/21 03:59 Pulse 52 L 05/06/21 06:00 Resp 16 05/06/21 03:59 BP 118/66 05/06/21 03:59 Pulse Ox 92 05/06/21 03:59 05/05/21 05/06/21 05/06/21 22:59 06:59 14:59 Intake Total 240 / 1250 50 / 1300 Output Total 350 / 350 550 / 900 Balance -110 / 900 -500 / 400 Physical Exam Narrative: Patient is alert and orient x3 has good general appearance normal normal affect.? Left hip incision is clean and dry.? There is no signs of erythema or drainage no signs of infection.? Good motor strength throughout both lower extremities.? Fires in all motor groups.? Skin is clear warm, feet are warm with good cap refill in all digits.? Normal sensation to light touch.? Calves are supple,? no medial thigh tenderness, negative Homans' sign.? No palpable edema peripherally. Urinary Catheter Management: Larose: Cath Placed During This Visit: yes, but has since been removed by the nurse Reason for Continuing Indwelling Catheter: Decision to DC Catheter Urinary Catheter Date of Insertion: 05/03/21 Urinary Catheter Time of Insertion: 21:40 Date Urinary Catheter Removed: 05/07/21 Time Urinary Catheter Discontinued: 06:30 Data : 05/06/21 04:50 05/06/21 04:50 Micro: Microbiology 05/03/21 21:40 Urine Culture - Preliminary Urine Catheterized Gram Negative Rods A&P Assessment and plan (1) Left displaced femoral neck fracture: Continue physical therapy weightbearing as tolerated. See her back in the office in 2 weeks time for staple removal. Continue incentive spirometry for pulmonary toilet. Please change dressings to the left hip. Status: Acute Attestations Medical Necessity Statement*: Defer to medical team Coding Level of Care Code Acute Swedish Masseuse for David Malloy Diagnoses Left displaced femoral neck fracture S72.002A
[2021-05-06] MEDS: predniSONE 20 mg Tablet 40 MG PO (08:53)
[2021-05-06] MEDS: docusate sodium 100 mg Capsule PO ×2 (08:53→17:11)
[2021-05-06] MEDS: HYDROcodone-acetaminophen 5-325 mg Tablet 1 TAB PO (08:53)
[2021-05-06 10:15] LABS: Reticulocyte % 2.2 % (0.5-2.0)
[2021-05-06 10:23] LABS: Ferritin 402 ng/mL (15-150); Iron 31 ug/dL (37-145); Percent Saturation 14.9 % (20-50); Total Iron Binding Capacity 208 mcg/dl; Unsaturated Iron Binding 177 ug/dL (112-347)
[2021-05-06 10:38] LABS: Vitamin B12 692 pg/mL (232-1245)
[2021-05-06 10:39] LABS: Folate Level 17.8 ng/mL (4.8-37.3)
[2021-05-06] MEDS: sucralfate 1 gm Tablet PO ×3 (11:03→21:28)
[2021-05-06 11:57] LABS: Hematocrit 28.2 % (37.0-47.0); Hemoglobin 9.3 g/dL (11.5-15.3)
--- NOTE | 2021-05-06 13:19 | P.PN_ITS ---
Subjective Subjective: Patient was seen this morning, she sitting up in a chair, her hemoglobin is at 8.2, denies bloody or black stools, denies a history of blood transfusions, denies a history of bleeding, she is working with physical therapy Vitals/I&O/Wt Last Vital Signs Temp 97.3 F L 05/06/21 11:42 Pulse 70 05/06/21 11:42 Resp 16 05/06/21 11:42 BP 127/71 05/06/21 11:42 Pulse Ox 97 05/06/21 11:42 05/05/21 05/06/21 05/06/21 22:59 06:59 14:59 Intake Total 240 / 1250 50 / 1300 360 / 360 Output Total 350 / 350 550 / 900 Balance -110 / 900 -500 / 400 360 / 360 Physical Exam Const: COMMON NORMALS: no acute distress and patient oriented x3 Resp: COMMON NORMALS: normal respiratory effort, No retractions, No use of accessory muscles and clear to auscultation bilaterally AUSCULTATION: clear to auscultation bilaterally Cardio: COMMON NORMALS: regular rate, regular rhythm, S1 normal heart sound present and S2 normal heart sound present RATE: regular rate RHYTHM: regular rhythm HEART SOUNDS: S1 normal heart sound present and S2 normal heart sound present GI: COMMON NORMALS: Normal to inspection, nondistended, normoactive bowel sounds present, Soft to palpation, non-tender and No hepatosplenomegaly present PALPATION: Yes Soft to palpation and Yes No hepatosplenomegaly present Extremity: COMMON NORMALS: no pedal edema Neuro: COMMON NORMALS: patient oriented x3 Psych: COMMON NORMALS: mental status grossly normal Urinary Catheter Management: Larose: Cath Placed During This Visit: yes, but has since been removed by the nurse Reason for Continuing Indwelling Catheter: Decision to DC Catheter Urinary Catheter Date of Insertion: 05/03/21 Urinary Catheter Time of Insertion: 21:40 Date Urinary Catheter Removed: 05/07/21 Time Urinary Catheter Discontinued: 06:30 Data : 05/06/21 11:38 05/06/21 04:50 Micro: Microbiology 05/03/21 21:40 Urine Culture - Preliminary Urine Catheterized Gram Negative Rods A&P Assessment and plan (1) COPD exacerbation: Status: Acute (2) Closed fracture of left hip: Status: Acute Qualifiers: Encounter type: initial encounter Qualified Code(s): S72.002A - Fracture of unspecified part of neck of left femur, initial encounter for closed fracture (3) UTI (urinary tract infection): Status: Acute Plan Left hip fracture -Status post left hip hemiarthroplasty -Pain control morphine, Zofran for nausea -SCDs for DVT prophylaxis prophylaxis Lovenox on hold Acute anemia, hemoglobin 8.2, no hemodynamic compromise -Iron 31, TIBC 2 8, percent saturation 40.9, ferritin 402, normal B12 and folate -Possibly postsurgical -Hold Lovenox -Serial hemoglobins, monitor hemodynamics -If hemoglobin drops below 7 will transfuse -Likely discharge in the next 24 hours once hemoglobin stabilizes Hyponatremia, resolving UTI, Rocephin COPD exacerbation: Present 40 mg daily DEVIN on CKD, 1.5 COPD, not in exacerbation Hypertension, hold blood pressure medications History of aortic valve replacement, not on anticoagulation except aspirin Full code Disposition, will have PT OT work with her, decide if she needs to have home health care versus fpc placement Attestations Medical Necessity Statement*: Patient requires hospitalization for hip fracture, status post surgery, now having anemia Coding Level of Care Code Acute Employee Communications Manager for David Malloy Diagnoses COPD exacerbation J44.1 Closed fracture of left hip S72.002A Encounter type: initial encounter UTI (urinary tract infection) N39.0
[2021-05-06 18:47] LABS: Hematocrit 27.8 % (37.0-47.0); Hemoglobin 9.3 g/dL (11.5-15.3)
[2021-05-07] VITALS (8 sets, daily range): BP systolic 123–160; BP diastolic 55–81; PULSE 62–94; RESP 16–19; TEMP 36.6–36.9; O2SAT 94–98
[2021-05-07] MEDS: cefTRIAXone 1,000 MG in sodium chloride 0.9% (plus) 50 ML 100 MG IV (00:11)
[2021-05-07] MEDS: pantoprazole 40 mg SDV IVP (00:12)
[2021-05-07 00:38] LABS: Hematocrit 25.4 % (37.0-47.0); Hemoglobin 8.6 g/dL (11.5-15.3)
[2021-05-07 05:16] LABS: Basophils % 0.1 %; Eosinophils % 0.2 %; Hematocrit 24.6 % (37.0-47.0); Lymphocytes % 20.1 %; Mean Corpuscular HGB Conc 32.5 g/dL (30.0-36.0); Mean Corpuscular Hemoglobin 30.1 pg (28.0-34.0); Mean Corpuscular Volume 92.5 fl (81-99); Mean Platelet Volume 10.5 fL (7.4-10.4); Monocytes # 1.1 10^3/uL (0.2-0.9); Monocytes % 11.2 %; Neutrophils # 6.83 10^3/uL (1.8-7.7); Neutrophils % 67.8 %; Nucleated Red Blood Cells % 0 %; Platelet Count 177 10^3/cmm (130-400); Red Blood Count 2.66 10^6/uL (4.1-5.3); Red Cell Distribution Width 13.6 % (12.1-15.1); White Blood Count 10.1 10^3/uL (4.0-10.0)
[2021-05-07 05:43] LABS: Anion Gap 12.2 (5-19); Blood Urea Nitrogen 31 mg/dL (8-23); Calcium 9.6 mg/dL (8.5-10.5); Carbon Dioxide 22 mmol/L (22-29); Chloride 103 mmol/L (98-107); Glucose 94 mg/dL (65-115); Magnesium 1.9 mg/dL (1.7-2.3); Osmolality Calculated 282 mOsm/kg (285-295); Phosphorus 1.7 mg/dL (2.5-4.5); Potassium 4.2 mmol/L (3.5-5.1); Sodium 133 mmol/L (136-145)
[2021-05-07] MEDS: sucralfate 1 gm Tablet PO (06:05)
[2021-05-07] MEDS: docusate sodium 100 mg Capsule PO (09:51)
[2021-05-07] MEDS: iron sucrose 200 MG in sodium chloride 0.9% (100 ml) 100 ML 220 MG IV (09:51)
[2021-05-07] MEDS: predniSONE 20 mg Tablet 40 MG PO (09:52)
--- NOTE | 2021-05-07 11:25 | PM.DCS ---
Discharge Providers Date of Admission: 05/04/21 00:23 Date of Discharge: May 07, 2021 Attending Provider at Admission: Navneet Spears MD Attending Provider at Discharge: Navneet Spears MD Primary Care Provider: Stephany Rowan MD Diagnoses at Discharge Discharge Diagnosis (1) COPD exacerbation: Status: Acute (2) Closed fracture of left hip: Status: Acute Qualifiers: Encounter type: initial encounter Qualified Code(s): S72.002A - Fracture of unspecified part of neck of left femur, initial encounter for closed fracture (3) UTI (urinary tract infection): Status: Acute Reason for Visit Reason for Visit: FALL Hospital Course Hospital Course Kenya Beckford is a 81 year old female with a past medical history of COPD, history of aortic valve replacement, history of carotid endarterectomy, history of multiple falls, history of right shoulder surgery resultant from a fall, hypertension, dyslipidemia, CKD, who presents [facility] from a fall.? Patient was admitted to [facility] for left hip fracture, status post left Anthony arthroplasty, tolerated surgery well, receiving PT OT, discharge with home health care, discharged home. During hospitalization, she had hyponatremia, that improved, serum sodium on discharge was 133 During hospitalization, she was found to have a UTI, managed with inpatient antibiotics, discharged on 2 remaining days of Cipro During hospitalization she had a COPD exacerbation, received steroids as inpatient complete steroid treatment During hospitalization she developed acute anemia, hemoglobin as low as 8.2, no hemodynamic compromise, evidence of iron deficiency anemia, hemoglobin remained stable during hospitalization, no hemodynamic compromise, no bloody or black stools, no transfusion required, hemoglobin at discharge was 8.0. Discharged with Protonix, Carafate with close follow-up with primary care provider on Tuesday with recheck of hemoglobin. Follow-up with surgery in 1 month. Patient was advised to avoid all nonsteroidal anti-inflammatory medications. If she were to have lightheadedness, dizziness or black or black stools go to the emergency room. Physical Exam Const: COMMON NORMALS: no acute distress and patient oriented x3 Resp: COMMON NORMALS: normal respiratory effort, No retractions, No use of accessory muscles and clear to auscultation bilaterally AUSCULTATION: clear to auscultation bilaterally Cardio: COMMON NORMALS: regular rate, regular rhythm, S1 normal heart sound present and S2 normal heart sound present RATE: regular rate RHYTHM: regular rhythm HEART SOUNDS: S1 normal heart sound present and S2 normal heart sound present GI: COMMON NORMALS: Normal to inspection, nondistended, normoactive bowel sounds present, Soft to palpation and non-tender PALPATION: Yes Soft to palpation Extremity: COMMON NORMALS: no pedal edema Neuro: COMMON NORMALS: patient oriented x3 Psych: COMMON NORMALS: mental status grossly normal Urinary Catheter Management: Larose: Cath Placed During This Visit: yes, but has since been removed by the nurse Reason for Continuing Indwelling Catheter: Decision to DC Catheter Urinary Catheter Date of Insertion: 05/03/21 Urinary Catheter Time of Insertion: 21:40 Date Urinary Catheter Removed: 05/07/21 Time Urinary Catheter Discontinued: 06:30 Discharge Data Studies Completed and Pending Completed Studies During Hospitalization Category Date Time Status XR chest 1V portable [id number] Urgent Exams 05/03/21 21:09 Completed XR hip LT 2-3V wo/w pel* [id number] Stat Exams 05/03/21 21:09 Completed Pending at discharge Category Date Time Status Occult Blood Stool [Immunochemical Fecal OCB] Routine Lab 05/06/21 08:44 Uncollected Radiology Impressions Chest X-Ray 05/03/21 21:09 IMPRESSION: 1. Pulmonary hyperinflation which may indicate COPD. No acute cardiopulmonary process noted. Hip/Pelvis X-Ray 05/03/21 21:09 IMPRESSION: 1. Impacted subcapital fracture of the left hip without significant angulation or displacement. 2. Moderate degenerative change. Laboratory Results WBC 10.1 10^3/uL (4.0-10.0) H 05/07/21 04:53 RBC 2.66 10^6/uL (4.1-5.3) L 05/07/21 04:53 Hgb 8.0 g/dL (11.5-15.3) L 05/07/21 04:53 Hct 24.6 % (37.0-47.0) L 05/07/21 04:53 MCV 92.5 fl (81-99) 05/07/21 04:53 MCH 30.1 pg (28.0-34.0) 05/07/21 04:53 MCHC 32.5 g/dL (30.0-36.0) 05/07/21 04:53 RDW 13.6 % (12.1-15.1) 05/07/21 04:53 Plt Count 177 10^3/cmm (130-400) 05/07/21 04:53 MPV 10.5 fL (7.4-10.4) H 05/07/21 04:53 Neut % (Auto) 67.8 % 05/07/21 04:53 Lymph % (Auto) 20.1 % 05/07/21 04:53 [place] % (Auto) 11.2 % 05/07/21 04:53 Eos % (Auto) 0.2 % 05/07/21 04:53 Baso % (Auto) 0.1 % 05/07/21 04:53 Reticulocyte % (Auto) 2.2 % (0.5-2.0) H 05/06/21 09:40 Neut # (Auto) 6.83 10^3/uL (1.8-7.7) 05/07/21 04:53 Lymph # (Auto) 2.0 10^3/uL (0.8-4.8) 05/07/21 04:53 [place] # (Auto) 1.1 10^3/uL (0.2-0.9) H 05/07/21 04:53 Eos # (Auto) 0.0 10^3/uL (0.0-0.8) 05/07/21 04:53 Baso # (Auto) 0.0 10^3/uL (0.0-0.1) 05/07/21 04:53 Nucleated RBC % (auto) 0 % 05/07/21 04:53 Nucleated RBCs # 0.0 /100WBC 05/07/21 04:53 Sodium 133 mmol/L (136-145) L 05/07/21 04:53 Potassium 4.2 mmol/L (3.5-5.1) 05/07/21 04:53 Chloride 103 mmol/L (98-107) 05/07/21 04:53 Carbon Dioxide 22 mmol/L (22-29) 05/07/21 04:53 Anion Gap 12.2 (5-19) 05/07/21 04:53 BUN 31 mg/dL (8-23) H 05/07/21 04:53 Creatinine 1.1 mg/dL (0.5-0.9) H 05/07/21 04:53 GFR Calculation Not Reportable 05/07/21 04:53 Glucose 94 mg/dL (65-115) 05/07/21 04:53 Calculated Osmolality 282 mOsm/kg (285-295) L 05/07/21 04:53 Calcium 9.6 mg/dL (8.5-10.5) 05/07/21 04:53 Phosphorus 1.7 mg/dL (2.5-4.5) L 05/07/21 04:53 Magnesium 1.9 mg/dL (1.7-2.3) 05/07/21 04:53 Iron 31 ug/dL (37-145) L 05/06/21 09:40 TIBC 208 mcg/dl 05/06/21 09:40 % Saturation 14.9 % (20-50) L 05/06/21 09:40 Unsat Iron Binding 177 ug/dL (112-347) 05/06/21 09:40 Ferritin 402 ng/mL (15-150) H 05/06/21 09:40 Total Bilirubin 0.4 mg/dL (0.15-1.2) 05/03/21 21:20 AST 29 U/L (0-32) 05/03/21 21:20 ALT 17 U/L (0-33) 05/03/21 21:20 Alkaline Phosphatase 81 IU/L (35-105) 05/03/21 21:20 NT-Pro-B Natriuret Pep 1178 pg/mL (0-450) H 05/04/21 03:12 Total Protein 7.6 g/dL (6.6-8.7) 05/03/21 21:20 Albumin 4.4 g/dL (3.5-5.2) 05/03/21 21:20 Globulin 3.2 g/dL (1.3-4.6) 05/03/21 21:20 Vitamin B12 692 pg/mL (232-1245) 05/06/21 09:40 Folate 17.8 ng/mL (4.8-37.3) 05/06/21 09:40 TSH 0.33 uIU/mL (0.27-4.20) 05/05/21 05:10 Urine Color Yellow (Yellow) 05/03/21 21:40 Urine Appearance Clear (CLEAR) 05/03/21 21:40 Urine pH 5 (5-7) 05/03/21 21:40 Ur Specific [place] 1.020 (1.005-1.030) 05/03/21 21:40 Urine Protein Neg (Negative) 05/03/21 21:40 Urine Glucose (UA) Norm (Normal) 05/03/21 21:40 Urine Ketones Negative (Negative) 05/03/21 21:40 Urine Blood Neg (Negative) 05/03/21 21:40 Urine Nitrate Positive (Negative) H 05/03/21 21:40 Urine Bilirubin Neg (Negative) 05/03/21 21:40 Urine Urobilinogen Norm mg/dL (Negative) 05/03/21 21:40 Ur Leukocyte Esterase Trace (Negative) H 05/03/21 21:40 Urine RBC 0-4 /hpf (0-2) H 05/03/21 21:40 Urine WBC >100 /hpf (0-5) H 05/03/21 21:40 Ur Squamous Epith Cells 0-4 /hpf (0-5) H 05/03/21 21:40 Amorphous Sediment Not Reportable 05/03/21 21:40 Urine Bacteria 4+ /hpf (NONE) H 05/03/21 21:40 Hyaline Casts 0-4 /lpf H 05/03/21 21:40 Vitals Last Vital Signs Temp 98.3 F 05/07/21 08:00 Pulse 72 05/07/21 08:04 Resp 16 05/07/21 08:04 BP 155/72 05/07/21 08:00 Pulse Ox 95 05/07/21 08:04 Discharge Plan Discharge Patient Disposition: Home Condition: Stable Prescriptions: New hydrocodone-acetaminophen 5-325 mg Tablet 1 tab PO Q6H PRN (Reason: Moderate Pain) 7 Days Qty: 28 0RF pantoprazole [Protonix] 40 mg tablet,delayed release (DR/EC) 40 mg PO BID 30 Days Qty: 60 0RF sucralfate 1 gram Tablet 1 g PO AC&BEDTIME 30 Days Qty: 60 0RF ciprofloxacin HCl 500 mg tablet 500 mg PO BID 2 Days Qty: 4 0RF Continued aspirin 81 mg tablet,delayed release (DR/EC) 81 mg PO DAILY 0RF Multiple Vitamin, Womens Tablet 1 tab PO DAILY 0RF lisinopril-hydrochlorothiazide 20-25 mg tablet See Rx Instructions .ROUTE .COMPLEX Qty: 30 0RF Dose Instruction: TAKE ONE TABLET BY MOUTH DAILY Rx Instructions: TAKE ONE TABLET BY MOUTH DAILY metoprolol succinate 25 mg tablet extended release 24 hr See Rx Instructions .ROUTE .COMPLEX Qty: 30 0RF Dose Instruction: TAKE ONE TABLET BY MOUTH DAILY Rx Instructions: TAKE ONE TABLET BY MOUTH DAILY Discontinued celecoxib [Celebrex] 200 mg capsule 200 mg PO BID Qty: 60 1RF Discharge Orders: Discharge Order (Routine); Ordered 05/07/21 Ordered By: Navneet Speasr Other Ambulatory Orders: DME: Walker (Order) Location: None Selected Ordered By: Navneet Spears Referrals: [facility] [Outside] [facility] Home Care ([facility]) [Outside] Michael Meyer MD [Physician] - 1 month Stephany Rowan MD [Primary Care Provider] - Discharge Diet: Regular Discharge Activity: Increase activity as tolerated Patient Instructions: Opioid Safety Activity Restrictions/Additional Instructions: You are being discharged from the hospital today during which time you have been under the care of Dr Butler. You had a Right hip fracture. You were treated for this injury with IM nail. You may resume you normal diet (including any special diets as directed by your primary doctor) as well as your home medications. You should follow up with you primary doctor if you have any questions regarding medication you took prior to your stay in the hospital. You may take your pain medication as prescribed. After the first few days, take your pain medication as needed. Do not drive or drink alcohol while taking your pain medication. Your injury may increase your risk of developing a blood clot,or DVT, in your arm or leg. This could potentially dislodge and travel to your lungs and become a life threatening condition called apulmonary embolus,or PE. You have been prescribed eliquis to be taken to prevent this. Frequent movement of the legs will also help prevent this from occurring. If you develop any new or worsening cough, chestpain, bloody sputum or shortness of breath, call 911 or go to the EmergencyRoom. Always keep your surgical incision/dressing clean and dry. If you experience increasing pain at your incision site, redness, swelling, increasing discharge, foul odors, or fevers (greater than 100.4), night sweats or chills you should call the office at the above number. If you feel this is an emergency you should be evaluated in the Emergency Department of a nearby hospital. Orthopedic Patient Instructions Summary: Weight Bearing: WBAT Activity: as tolerated. Diet: regular. Wound Care: Keep dressing clean and dry. Change as needed Anticoagulation: Lovenox Pain Medication: Take only as needed. Ice, rest and elevation will be of great benefit. Please plan to follow-up wlbunny Butler in 2 weeks. You will need to call the clinic [phone] to schedule. Do not hesitate to call the office with any questions or concerns. -If you feel lightheaded or dizzy please go to the emergency room -If you develop bloody or black stools please go to emergency room -Please have your primary care provider recheck your hemoglobin on Tuesday -Take Protonix and Carafate as prescribed -Avoid ibuprofen, naproxen, Aleve and any nonsteroidal anti-inflammatory drugs -Follow-up with general surgery in 1 month -Take antibiotics as prescribed -Please use pain medication sparingly, do not drive or operate heavy machinery or consume alcohol while taking pain medications Discharge Attestations Time Spent in Discharge Care*: less than 30 min Quality Metrics Clinical Quality Measures [ No reported AMI, CVA or VTE this stay] Coding Level of Care Code Acute [facility] note Diagnoses COPD exacerbation J44.1 Closed fracture of left hip S72.002A Encounter type: initial encounter UTI (urinary tract infection) N39.0
--- NOTE | 2021-05-07 11:53 | PC.SOCIAL ---
Pg 2 IMM Explained to pt PG 2 IMM. No questions voiced. Provided pt a copy. Initialed, dated, & timed a copy & placed in chart.
--- NOTE | 2021-05-07 13:00 | PC.NURSE ---
Discharge paperwork gone over with patient. Patient verbalized understanding. All personal items gathered to be sent with patient. Patient waiting on her son to pick her up.
== END 2021-05-07 13:30 | disposition home health service (06) | DRG 522 ==
LOC: ER 05-04 00:16 → MEDSURG 05-04 00:23
PROVIDERS: Orthopaedic Surgery; Admitting Provider Family Medicine; Emergency Provider Emergency Medicine; PCP Family Medicine; Visit Provider Family Medicine
PROC: 0SRS0JZ Replacement of Left Hip Joint, Femoral Surface with Synthetic Substitute, Open Approach (ICD-10-PCS; CPT 27125; principal; 2021-05-04 18:10)
DX: S72.012A Unspecified intracapsular fracture of left femur, initial encounter for closed fracture (principal); J44.1 Chronic obstructive pulmonary disease with (acute) exacerbation; N39.0 Urinary tract infection, site not specified; E87.1 Hypo-osmolality and hyponatremia; N17.9 Acute kidney failure, unspecified; W18.30XA Fall on same level, unspecified, initial encounter; Z95.2 Presence of prosthetic heart valve; F17.210 Nicotine dependence, cigarettes, uncomplicated; Z96.611 Presence of right artificial shoulder joint; I12.9 Hypertensive chronic kidney disease with stage 1 through stage 4 chronic kidney disease, or unspecified chronic kidney disease; N18.9 Chronic kidney disease, unspecified; E78.5 Hyperlipidemia, unspecified; E86.0 Dehydration; Z79.82 Long term (current) use of aspirin; D50.9 Iron deficiency anemia, unspecified
CPT/HCPCS: 36415; 51702; 71045; 73502; 80048; 80053; 81001; 82607; 82728; 82746; 83540; 83550; 83735; 83880; 84100; 84443; 85014; 85018; 85025; 85045; 87077; 87086; 87186; 93005; 94664; 96372; 97116; 97161; 97165; 97530; 97535; 99285; C1776; C9113; J0696; J1100; J1200; J1650; J1756; J1885; J2270; J2405; J2704; J2710; J2930; J3010; J3490; J7030; J7512

== ENCOUNTER 2021-05-13 13:23 | Emergency (ER) | payer MEDICARE, SELFPAY ==
[2021-05-13 13:37] VITALS: BP 151/67; PULSE 61; RESP 16; TEMP 36.8; O2SAT 96; BMI 24.0
--- NOTE | 2021-05-13 13:41 | W.ED.GENADLT ---
HPI - General Adult General: Chief complaint: Wound/Laceration Stated complaint: POST OP BLEEDING FROM HIP Time Seen by Provider: 05/13/21 13:40 History of Present Illness: Ms Beckford is an 81-year-old lady with complex past medical history hospitalized starting 05/03 for fall with hip fracture. Underwent surgical repair on 05/04. She additionally was treated in the hospital for COPD exacerbation and UTI. Had been doing well however today was noted to have blood draining from her surgical incision. She does have a history of anemia however denies worsening symptoms including lightheadedness, dizziness, chest pain, shortness of breath. She denies recurrent falls or trauma. Denies known specific provoking factors. No other specific changes in health, exacerbating, or alleviating factors identified. Onset (ago): minute(s) Location: left and lower extremity Review of Systems General: Reports: 10 or more systems reviewed and unremarkable except in HPI and below PFSH ED PFSH: Medical History Aortic stenosis Arrhythmia Arteriosclerosis of left carotid artery Cardiomyopathy CKD (chronic kidney disease) COPD (chronic obstructive pulmonary disease) Dyslipidemia HTN (hypertension) Left ventricular dysfunction Surgical History Aortic valve replaced H/O carotid endarterectomy H/O: hysterectomy History of back surgery Hx of cholecystectomy S/p reverse total shoulder arthroplasty S/P shoulder surgery Family History Denies family history of Diabetes Clotting disorder Dementia Hyperlipidemia Psychiatric illness Chronic kidney disease (CKD) Suicide Anesthesia complication Bleeding disorder Family history of premature coronary artery disease Lung disease Cancer Hypertension Social History Smoking and tobacco status: current every day smoker Alcohol intake: never Lives independently: No Household members: family Marital status: service: No Current occupational status: retired History of recent travel: No Current gender identity: Female Physical Exam Const: COMMON NORMALS: alert GENERAL APPEARANCE: cooperative and well developed HENMT: COMMON NORMALS: normocephalic and atraumatic HEAD & SCALP: normocephalic and atraumatic Eye: COMMON NORMALS: conjunctivae normal CONJUNCTIVA: Yes conjunctivae normal SCLERA: sclerae normal Neck/C-Spine: COMMON NORMALS: supple GENERAL: Yes trachea midline Resp: COMMON NORMALS: normal respiratory effort EFFORT & INSPECTION: Yes able to speak in complete sentences Cardio: COMMON NORMALS: regular rate and regular rhythm RATE: regular rate RHYTHM: regular rhythm GI: COMMON NORMALS: Soft to palpation PALPATION: Yes Soft to palpation and No Tenderness to palpation present (GI) PERCUSSION: normal to percussion Extremity: NARRATIVE EXTREMITY EXAM: Surgical incision with юлия intact. There is soft tissue edema though no erythema. There appears to be sanguinous and serosanguineous fluid drainage in between юлия approximately mid incision. Appropriate postoperative tenderness to palpation?minimal. Distal CMS intact. GENERAL: Yes normal exam except as noted and No edema Neuro: COMMON NORMALS: moves all extremities SENSORIUM/ORIENTATION: Yes alert and No Orientation impaired Psych: COMMON NORMALS: mental status grossly normal and Normal thought process present THOUGHT PROCESS: Normal thought process present Course ED course: - Patient was seen and evaluated by me at bedside - Patient placed on cardiac monitors, IV access obtained - Initial evaluation notable for exam as above. - Labs personally interpreted by me - Labs notable for hemoglobin improving from discharge. - Imaging notable for abnormal appearance of the greater trochanter, hardware appears intact. Likely postoperative hematoma identified on ultrasound - Upon serial reexamination after treatment the patient was similar - Based on patient history, evaluation, and testing as interpreted the most likely cause of the patient's condition is liquefying postoperative hematoma with mild wound drainage and edema. - Discussed with orthopedic surgeon including abnormal x-ray results and ultrasound who is comfortable with continue plan for outpatient follow-up - The results of ED evaluation were discussed with the patient including prescriptions and/or symptomatic cares (if applicable) including appropriate and responsible use, followup plan, and return precautions. The patient verbalized understanding and felt safe for discharge. - Patient discharged in satisfactory condition. Note: Click bubbles or prepopulated osorio in note writing are used for assistance with data collection and billing and are inherently more limited than narrative and other text portions of this note. Please use narrative for additional clinical history and defer to narrative/free test for any case of contradictory information. If information appears in only free text or click bubble it should be considered present or absent as reported. Please contact note business writer for clarifications of clinical information or contradictory information. MDM is a brief summary, contradictory or erroneous seeming information should be clarified and full note should be reviewed. Vital Signs: Vital signs: Vital Signs Temperature 98.2 F 05/13/21 13:37 Pulse Rate 65 05/13/21 19:09 Respiratory Rate 16 05/13/21 19:09 Blood Pressure 148/76 05/13/21 19:09 Pulse Oximetry 98 05/13/21 19:09 [facility] - General Adult Medical Decision Making 81-year-old lady with recent history of hip replacement presenting with bleeding. Some serosanguineous drainage in between юлия, wound appears noninfected. ED evaluation with likely liquefying postoperative hematoma. Discussed with orthopedics. Satisfactory for outpatient management. Medical Records I reviewed the patient's medical records. Lab Data I reviewed the patient's lab results. : 05/13/21 14:45 Radiology Impressions Hip/Pelvis X-Ray 05/13/21 14:07 IMPRESSION: Abnormal appearance of the greater trochanter as above. This has somewhat the appearance of a lytic lesion with fracture however most likely represents fracture and hematoma. Soft Tissue Ultrasound 05/13/21 14:07 IMPRESSION: 1. Ill-defined mixed echogenicity heterogeneous fluid collection measuring 1.8 x 1.5 x 2.0 cm. This likely represents postoperative hematoma. This does not appear drainable. Infection with abscess is less likely considering recent surgery. Laboratory Results Hgb 9.5 g/dL (11.5-15.3) L 05/13/21 14:45 Hct 29.0 % (37.0-47.0) L 05/13/21 14:45 Discharge Plan Discharge Patient Disposition: Home Clinical Impression: Post-op bleeding, Hematoma Condition: Stable Prescriptions: No Action aspirin 81 mg tablet,delayed release (DR/EC) 81 mg PO DAILY 0RF Multiple Vitamin, Womens Tablet 1 tab PO DAILY 0RF lisinopril-hydrochlorothiazide 20-25 mg tablet See Rx Instructions .ROUTE .COMPLEX Qty: 30 0RF Dose Instruction: TAKE ONE TABLET BY MOUTH DAILY Rx Instructions: TAKE ONE TABLET BY MOUTH DAILY metoprolol succinate 25 mg tablet extended release 24 hr See Rx Instructions .ROUTE .COMPLEX Qty: 30 0RF Dose Instruction: TAKE ONE TABLET BY MOUTH DAILY Rx Instructions: TAKE ONE TABLET BY MOUTH DAILY sucralfate 1 gram Tablet 1 g PO AC&BEDTIME 30 Days Qty: 60 0RF Protonix 40 mg tablet,delayed release (DR/EC) 40 mg PO BID 30 Days Qty: 60 0RF Discharge Orders: Discharge ED (Routine); Ordered 05/13/21 Ordered By: Luis F Fields Referrals: Stephany Rowan MD [Primary Care Provider] - Discharge Diet: Usual diet Discharge Activity: Resume usual activity Patient Instructions: Acute Wound Care (ED), Hematoma (ED) Activity Restrictions/Additional Instructions: Thank you for visiting the emergency department. You were seen and evaluated for bleeding from a surgical incision. You were found to have a likely liquefying hematoma. Please follow-up with your surgeon. Please return to the emergency department for any signs of infection, significant bleeding, or anything else that you are concerned about and feel needs emergency department evaluation. Coding Level of Care Code ED Instructor Physical for David Fwd Exam Comprehensive
--- NOTE | 2021-05-13 14:07 | XR_ITS ---
WS: [id number] XR hip LT 2-3V wo/w pel* [id number] REASON FOR EXAM: post op concern FINDINGS: There has been a total left hip replacement for subcapital fracture of the left femur. There are no previous images of the left hip replacement to compare with. There is moderate sized are a of lucency in the superior medial greater trochanter uncovered by cortex and contiguous with the pr oximal most femoral shaft post of the prosthesis. This area was intact on the preoperative examinatio n of 05/03/2021. XR/XR hip LT 2-3V wo/w pel* [id number] IMPRESSION: Abnormal appearance of the greater trochanter as above. This has somewhat the a ppearance of a lytic lesion with fracture however most likely represents fractu re and hematoma.
--- NOTE | 2021-05-13 14:07 | US_ITS ---
WS: [id number] INDICATION: LEFT hip incision evaluate for abscess. TECHNIQUE: Ultrasound LEFT hip. FINDINGS: Ultrasound LEFT hip soft tissue. Recent hip surgery. Diffuse soft tissue edema compatible w ith recent surgery. Ill-defined heterogeneous fluid collection measuring 1.8 x 1.5 x 2.0 cm. This lik amanda represents postoperative hematoma. Infection with abscess is less likely. This does not appear dr aviles US/US soft tissue/extremity [id number] IMPRESSION: 1. Ill-defined mixed echogenicity heterogeneous fluid collection measuring 1.8 x 1.5 x 2.0 cm. This likely represents postoperative hematoma. This does not a ppear drainable. Infection with abscess is less likely considering recent surge ry.
[2021-05-13 14:59] LABS: Hemoglobin 9.5 g/dL (11.5-15.3)
[2021-05-13 16:23] VITALS: BP 147/75; PULSE 72; RESP 16; O2SAT 98
[2021-05-13 19:09] VITALS: BP 148/76; PULSE 65; RESP 16; O2SAT 98
== END 2021-05-13 19:10 | disposition home or self-care (01) ==
PROVIDERS: Emergency Provider Emergency Medicine; PCP Family Medicine
DX: L76.32 Postprocedural hematoma of skin and subcutaneous tissue following other procedure (principal); D64.9 Anemia, unspecified; I12.9 Hypertensive chronic kidney disease with stage 1 through stage 4 chronic kidney disease, or unspecified chronic kidney disease; N18.9 Chronic kidney disease, unspecified; Z79.82 Long term (current) use of aspirin; E78.5 Hyperlipidemia, unspecified
CPT/HCPCS: 36415; 73502; 76882; 85014; 85018; 99283

== ENCOUNTER → 2021-05-19 10:24 | Outpatient (BNVA) | payer MEDICARE, SELFPAY | PROVIDERS: PCP Family Medicine; Visit Provider Orthopaedic Surgery | DX: Z47.89 Encounter for other orthopedic aftercare (principal); Z98.890 Other specified postprocedural states | CPT/HCPCS: 99024; 99213 ==

== ENCOUNTER → 2021-06-02 14:12 | Outpatient (BNVA) | payer MEDICARE, SELFPAY | PROVIDERS: PCP Family Medicine; Visit Provider Orthopaedic Surgery | DX: S72.002D Fracture of unspecified part of neck of left femur, subsequent encounter for closed fracture with routine healing (principal); X58.XXXD Exposure to other specified factors, subsequent encounter; Z96.642 Presence of left artificial hip joint | CPT/HCPCS: 73502; 99024 ==

== ENCOUNTER → 2021-07-21 14:08 | Outpatient (BNVA) | payer MEDICARE, SELFPAY | PROVIDERS: PCP Family Medicine; Visit Provider Orthopaedic Surgery | DX: S72.002D Fracture of unspecified part of neck of left femur, subsequent encounter for closed fracture with routine healing (principal); W19.XXXD Unspecified fall, subsequent encounter | CPT/HCPCS: 73502; 99024 ==

== ENCOUNTER → 2021-08-03 15:27 | Outpatient (BNVA) | payer MEDICARE, SELFPAY | PROVIDERS: PCP Family Medicine; Visit Provider Internal Medicine | DX: I10 Essential (primary) hypertension (principal); I42.9 Cardiomyopathy, unspecified; J44.9 Chronic obstructive pulmonary disease, unspecified; E78.5 Hyperlipidemia, unspecified; Z95.2 Presence of prosthetic heart valve; Z98.890 Other specified postprocedural states; F17.200 Nicotine dependence, unspecified, uncomplicated | CPT/HCPCS: 99214 ==

== ENCOUNTER 2021-10-30 09:38 | Outpatient (CLI) | payer MEDICARE, SELFPAY ==
--- NOTE | 2021-10-30 10:15 | USCV_ITS ---
Analy Kenya Age: 81 Gender: F : 1940 Exam Date: 10/30/2021 09:53 Ordering Phys: Ramon Le M.D ([email or web address]) Technologist: Linda Del Toro [place]am Location[place] [facility] [place]: AOV replacement; BP: 116 / 66 HR: 63 Rhythm: Other Technical Quality: Good MEASUREMENTS (Male / Female) Normal Values 2D ECHO LV Diastolic Diameter PLAX 4.4 cm 4.2 - 5.9 / 3.9 - 5.3 cm LV Systolic Diameter PLAX 3.2 cm IVS Diastolic Thickness 1.6 cm 0.6 - 1.0 / 0.6 - 0.9 cm IVS Systolic Thickness 2.0 cm LVPW Diastolic Thickness 1.1 cm 0.6 - 1.0 / 0.6 - 0.9 cm LVPW Systolic Thickness 1.4 cm LVOT Diameter 1.9 cm LV Ejection Fraction 2D Teich 56.0 % LV Ejection Fraction MOD 2C 58.4 % LV Ejection Fraction 2C AL 61.9 % LA Diameter 2.6 cm LA Width 3.8 cm LA Height 3.0 cm RA Width 2.8 cm RA Height 3.3 cm Aorta at Sinotubular Diameter 2.9 cm IVC Diameter 1.1 cm M-MODE MV E Point Septal Separation 0.2 cm DOPPLER AV Peak Velocity 156.0 cm/s LVOT Peak Velocity 77.0 cm/s AV Area Cont Eq vti 1.7 cm squared AV Area Cont Eq pk 1.5 cm squared MV Peak Velocity 80.0 cm/s MV Area PHT 3.2 cm squared Mitral E to A Ratio 0.7 MV E' Velocity 32.0 cm/s Mitral E to MV E' Ratio 9.5 Mitral E to LV E' Lateral Ratio 8.4 Mitral E to LV E' Septal Ratio 11.2 TR Peak Velocity 172.0 cm/s TR Peak Gradient 11.8 mmHg Right Atrial Pressure 3.0 mmHg Pulmonary Artery Systolic Pressu 14.8 mmHg RV Acceleration Time 0.2 s RV Ejection Time 0.4 s RV AcT/ET 0.4 FINDINGS Left Ventricle Left ventricle is normal in size. LV systolic function is normal with EF 50-55%. No regional wall motion abnormalities are seen.Septal basal hypertrophy. Grade 1 diastolic dysfunction Right Ventricle Normal in size and function Right Atrium Normal in size Left Atrium Dilated Mitral Valve Moderate mitral annular calcification. Mild mitral regurgitation. Aortic Valve Bioprosthetic aortic valve. Mild aortic regurgitation. No significant stenosis. Normal DVI of 0.57 Tricuspid Valve Mild tricuspid regurgitation. Pulmonary artery systolic pressure is normal Pulmonic Valve Trace pulmonic regurgitation Pericardium Normal Aorta Normal in size IVC IVC appears to be normal CONCLUSIONS LV systolic function is normal with EF of 50 to 55%. Septal basal hypertrophy is seen. Grade 1 diastolic dysfunction Left atrial dilation Moderate mitral annular calcification is seen. Mild mitral regurgitation. Bioprosthetic aortic valve is seen. Mild aortic regurgitation. No significant stenosis. Trace pulmonic regurgitation. 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 Ramon Le MD (Electronically Signed) Final Date: 11 November 2021 12:49 S
== END 2021-10-30 09:39 | disposition home or self-care (01) ==
LOC: RAD 09:40
PROVIDERS: PCP Family Medicine; Visit Provider Internal Medicine
DX: Z95.2 Presence of prosthetic heart valve (principal); I08.0 Rheumatic disorders of both mitral and aortic valves; I42.9 Cardiomyopathy, unspecified; I10 Essential (primary) hypertension
CPT/HCPCS: 93306

== ENCOUNTER → 2022-01-04 10:20 | Outpatient (BNVA) | payer MEDICARE, SELFPAY | PROVIDERS: PCP Family Medicine; Visit Provider Family Medicine | DX: I10 Essential (primary) hypertension (principal); E78.5 Hyperlipidemia, unspecified | CPT/HCPCS: 80053; 80061; 84443; 85025 ==

== ENCOUNTER → 2022-03-22 10:01 | Outpatient (BNVA) | payer MEDICARE, SELFPAY | PROVIDERS: PCP Family Medicine; Visit Provider Family Medicine | DX: E87.1 Hypo-osmolality and hyponatremia (principal) | CPT/HCPCS: 80048 ==

== ENCOUNTER → 2022-04-12 12:28 | Outpatient (BNVA) | payer MEDICARE, SELFPAY | PROVIDERS: PCP Family Medicine; Visit Provider Nurse Practitioner Family | DX: I13.10 Hypertensive heart and chronic kidney disease without heart failure, with stage 1 through stage 4 chronic kidney disease, or unspecified chronic kidney disease (principal); N18.9 Chronic kidney disease, unspecified; I42.9 Cardiomyopathy, unspecified; Z95.2 Presence of prosthetic heart valve | CPT/HCPCS: 99214 ==

== ENCOUNTER → 2022-07-22 11:12 | Outpatient (BNVA) | payer MEDICARE, SELFPAY | PROVIDERS: PCP Family Medicine; Visit Provider Nurse Practitioner Family | DX: M25.561 Pain in right knee (principal); M17.11 Unilateral primary osteoarthritis, right knee | CPT/HCPCS: 73562 ==

== ENCOUNTER 2022-08-06 09:55 | Outpatient (CLI) | payer MEDICARE, SELFPAY ==
--- NOTE | 2022-08-06 10:15 | MR_ITS ---
WS: [id number] MRI RIGHT KNEE HISTORY: M25.561 - Pain in right knee COMPARISON: 07/22/2022 Anterior cruciate ligament: Intact. Posterior cruciate ligament: Intact. Medial collateral ligament: Limited evaluation due to significant motion artifact. Posterior lateral corner structures: Limited by motion artifact. Medial menisci: Cannot adequately evaluate due to motion. Lateral meniscus: Cannot adequately evaluate due to motion. Extensor mechanism: Extremely limited evaluation due to motion. Fluid and soft tissue: Small suprapatellar joint effusion. There is edema surrounding the knee. No Ba ker's cyst. Osseous and articular structures: Patellofemoral compartment: Mild narrowing. Cartilage cannot be evaluated due to motion. Medial compartment: Moderate narrowing of the medial compartment. Limited evaluation of the cartilage and marrow due to motion. Lateral compartment: Mild narrowing. Limited evaluation of the cartilage and marrow due to motion. Note: Unfortunately the study is very limited due to motion. I cannot exclude meniscal abnormalities. MRI sequences can be attempted again if patient desires with additional attempts at the remaining st ill. This should be performed at no additional charge to the patient. MR/MR knee RT wo con* [id number] IMPRESSION: 1. Significant limitations due to motion artifact. Sequences necessary to eval uate the menisci, bone and cartilage demonstrates significant motion artifact a nd are nearly nondiagnostic. 2. Mild narrowing of the medial and lateral compartments. 3. Study is not adequate to exclude marrow edema or evaluate the meniscus. 4. Soft tissue edema.
== END 2022-08-06 09:56 | disposition home or self-care (01) ==
LOC: RAD 09:56
PROVIDERS: PCP Family Medicine; Visit Provider Nurse Practitioner Family
DX: M25.561 Pain in right knee (principal); R60.9 Edema, unspecified
CPT/HCPCS: 73721

== ENCOUNTER → 2022-09-14 15:44 | Outpatient (BNVA) | payer MEDICARE, SELFPAY | PROVIDERS: PCP Family Medicine; Visit Provider Internal Medicine | DX: I10 Essential (primary) hypertension (principal); Z98.890 Other specified postprocedural states; Z95.2 Presence of prosthetic heart valve; I65.22 Occlusion and stenosis of left carotid artery; J44.9 Chronic obstructive pulmonary disease, unspecified; E78.5 Hyperlipidemia, unspecified; I42.9 Cardiomyopathy, unspecified; F17.210 Nicotine dependence, cigarettes, uncomplicated | CPT/HCPCS: 99214 ==

== ENCOUNTER → 2023-06-21 11:24 | Outpatient (BNVA) | payer MEDICARE, SELFPAY | PROVIDERS: PCP Family Medicine; Visit Provider Family Medicine | DX: R60.9 Edema, unspecified (principal); I10 Essential (primary) hypertension; N18.9 Chronic kidney disease, unspecified | CPT/HCPCS: 80053; 80061; 84443; 85025 ==

== ENCOUNTER → 2023-07-07 13:41 | Outpatient (BNVA) | payer MEDICARE, SELFPAY | PROVIDERS: PCP Family Medicine; Visit Provider Family Medicine | DX: E87.1 Hypo-osmolality and hyponatremia (principal) | CPT/HCPCS: 80048 ==

== ENCOUNTER → 2024-05-15 11:20 | Outpatient (BNVA) | payer MEDICARE, SELFPAY | PROVIDERS: PCP Nurse Practitioner Family; Visit Provider Nurse Practitioner Family | DX: I10 Essential (primary) hypertension (principal); N18.9 Chronic kidney disease, unspecified | CPT/HCPCS: 80053; 80061; 84443; 85025 ==

== ENCOUNTER → 2024-06-20 15:07 | Outpatient (BNVA) | payer MEDICARE, SELFPAY | PROVIDERS: PCP Nurse Practitioner Family; Visit Provider Nurse Practitioner Family | DX: Z13.6 Encounter for screening for cardiovascular disorders (principal); R60.0 Localized edema | CPT/HCPCS: 80053; 83880; 85025 ==